=== PATIENT | female | born 2000 | race Caucasian/White ===

== ENCOUNTER → 2022-06-11 15:56 | Outpatient (CLI) | payer OTHER, SELFPAY | PROVIDERS: Visit Provider Obstetrics & Gynecology | DX: Z34.82 Encounter for supervision of other normal pregnancy, second trimester (principal) | CPT/HCPCS: 87086 ==

== ENCOUNTER → 2022-06-11 16:21 | Outpatient (CLI) | payer OTHER, SELFPAY ==
--- NOTE | 2022-06-11 16:25 | DI.US.S_ITS ---
PROCEDURE: US OB >= 14 WEEKS FETUS INDICATIONS: anatomy survey OUTSIDE/PRIOR DATING DATA: Last menstrual period (LMP): 12/31/2021. LMP-based estimated date of delivery (SABRINA): 10/07/2022. First dating scan (date and location): 06/12/2022. Estimated date of delivery (SABRINA) from first dating scan: 10/02/2022. TECHNIQUE: Real-time scanning was performed of the fetus, with image documentation and biometric measurements. Endovaginal scanning: Not performed COMPARISON: None. FINDINGS: General: A single living intrauterine gestation is present. Presentation: Breech. Placenta: Placental position is anterior , without previa. Amniotic fluid index: 19.9 cm, normal range is 5-24 cm. Single deepest vertical pocket is 6.3 cm. heart rate: 131 beats per minute. Maternal cervical canal: 3.8 cm long. Normal lower limit is 2.5 cm. biometrics: Biparietal diameter: 5.7 cm, 23 weeks 2 days Head circumference: 21.5 cm, 23 weeks 4 days Abdominal circumference: 19.7 cm, 24 weeks 3 days Femur length: 4.3 cm, 23 weeks 6 days estimated gestational age: 23 weeks 1 day Composite gestational age from present scan: 23 weeks 6 days Estimated weight and percentile: 658 g, 85th percentile Anatomic survey: Neuro: Ventricles are non-dilated at less than 10 mm. Cisterna magna is normal at 3-11 mm. Cerebellum is normal in size and morphology. Nuchal skin fold: Normal at less than 6 mm between 14-21 weeks gestational age. Face: Nose and lips, facial profile are normal. Spine: No evidence for spina bifida. Heart: 4-chambered heart is present, with normal ventricular outflow tracts. Left ventricular echogenic intracardiac focus Diaphragm: Diaphragm is intact. Stomach: Left-sided stomach is present. Kidneys: No hydronephrosis. Normal is less than 5 mm in 2nd trimester, less than 7 mm in 3rd trimester. Cord: 3-vessel cord has orthotopic insertion. Bladder: Normal in size. Extremities: All 4 extremities identified. IMPRESSION: 1. Single living intrauterine . 2. A left ventricular echogenic intracardiac focus is present. Recommend correlation with maternal age, ethnicity, and aneuploidy risk assessment results such as serum screening or cell free DNA testing to help guide further management. This finding in the context of low risk CFF DNA screening is likely a normal variant and not clinically significant. 3. Otherwise normal 2nd trimester anatomy survey. We strive to produce accurate, complete, and clear reports of imaging services. To assist us in improving patient care, this report was composed using standard report templates and voice recognition software. Therefore, it may contain abnormal punctuation, insertions and/or omissions. Occasional wrong-word or sound-alike substitutions may occur. Though we review the report and make efforts to correct it, we do recommend that the report be read carefully in proper context to recognize any text inaccuracies. Dictated by: Brandt Swartz M.D. on 06/12/2022 at 8:56 Approved by: Brandt Swartz M.D. on 06/12/2022 at 9:10
== END ==
PROVIDERS: Referring Provider Obstetrics & Gynecology; Visit Provider Obstetrics & Gynecology
DX: Z34.82 Encounter for supervision of other normal pregnancy, second trimester (principal); Z3A.23 23 weeks gestation of pregnancy
CPT/HCPCS: 76811; 87086

== ENCOUNTER → 2022-06-13 16:22 | Outpatient (CLI) | payer OTHER, SELFPAY | PROVIDERS: Visit Provider Physician Assistant Medical | DX: Z34.82 Encounter for supervision of other normal pregnancy, second trimester (principal); Z3A.23 23 weeks gestation of pregnancy | CPT/HCPCS: 87086 ==

== ENCOUNTER → 2022-06-13 16:28 | Outpatient (CLI) | payer OTHER, SELFPAY ==
[2022-06-13 17:56] LABS: Vitamin B12 867 pg/mL (239-931)
[2022-06-16 14:25] LABS: HIV 1 & 2 Ab/Ag 4th Gen Combo NEGATIVE (NEGATIVE); Hep C Virus Ab w/Reflex Quant NEGATIVE s/c (NEGATIVE)
== END ==
PROVIDERS: Referring Provider Obstetrics & Gynecology; Visit Provider Obstetrics & Gynecology
DX: Z34.82 Encounter for supervision of other normal pregnancy, second trimester (principal); Z3A.23 23 weeks gestation of pregnancy
CPT/HCPCS: 36415; 82607; 86803; 87086; 87389

== ENCOUNTER → 2022-07-11 08:48 | Outpatient (CLI) | payer OTHER, SELFPAY ==
[2022-07-11 10:25] LABS: Hematocrit 33.1 % (36-46); Hemoglobin 11.6 g/dL (12.0-16.0)
[2022-07-11 10:45] LABS: GTT (PREG) 1 Hour PP 50gm Dose 110 mg/dL (76-139)
== END ==
PROVIDERS: Referring Provider Specialist; Visit Provider Specialist
DX: Z34.82 Encounter for supervision of other normal pregnancy, second trimester (principal); Z3A.26 26 weeks gestation of pregnancy
CPT/HCPCS: 36415; 82950; 85014; 85018

== ENCOUNTER → 2022-09-03 10:26 | Outpatient (CLI) | payer OTHER, SELFPAY ==
[2022-09-04 12:14] LABS: Candida species Positive (Negative); Gardnerella vaginalis Negative (Negative); Trichomoas vaginalis Negative (Negative)
== END ==
PROVIDERS: Visit Provider Obstetrics & Gynecology
DX: N89.8 Other specified noninflammatory disorders of vagina (principal)
CPT/HCPCS: 87480; 87510; 87660

== ENCOUNTER 2022-09-13 11:02 | Emergency (ER) | payer OTHER, SELFPAY ==
[2022-09-13] VITALS (7 sets, daily range): BP systolic 119–132; BP diastolic 66–83; PULSE 102–109; RESP 15–22; TEMP 36.8; O2SAT 97–100; BMI 26.3
--- NOTE | 2022-09-13 11:22 | DI.RAD.S_ITS ---
PROCEDURE: XR CHEST 1V INDICATIONS: chest pain TECHNIQUE: One view of the chest was acquired. COMPARISON: None. FINDINGS: Surgical changes and devices: None. Lungs and pleura: Lungs are clear. No pleural effusions or pneumothorax. Mediastinum: Mediastinal contours appear normal. Heart size is normal. Bones and chest wall: No suspicious bony lesions. Overlying soft tissues appear unremarkable. IMPRESSION: No acute cardiopulmonary abnormality. Dictated by: Evelio Cruz M.D. on 09/13/2022 at 12:32 Approved by: Evelio Cruz M.D. on 09/13/2022 at 12:33
[2022-09-13 11:47] LABS: Add Manual Diff / Slide Review NO; Basophils Absolute Auto 0 /uL (0-100); Basophils Percent Auto 0.3 % (0-2); Eosinophils Absolute Auto 0 /uL (0-450); Eosinophils Percent Auto 0.5 % (2-4); Hemoglobin 11.7 g/dL (12.0-16.0); Lymphocytes Absolute Auto 1600 /uL (1100-4500); Lymphocytes Percent Auto 17.1 % (25-40); Mean Corpuscular HGB Conc 35.5 % (30-36); Mean Corpuscular Hemoglobin 32.4 PG (26-34); Mean Corpuscular Volume 91.2 fL (80-100); Monocytes Absolute Auto 800 /uL (0-900); Monocytes Percent Auto 8.1 % (3-14); Neutrophils Absolute Auto 6900 /uL (1500-7000); Platelet Count 154 X10^3/uL (150-400); Red Blood Cell Count 3.62 X10^6/uL (4.0-5.2); Red Cell Distribution Width 14.2 % (11.6-14.8); White Blood Cell Count 9.4 X10^3/uL (4.5-11.0)
[2022-09-13 11:51] LABS: Prothrombin Time 11.5 SECONDS (10.1-12.7)
[2022-09-13 11:54] LABS: PTT Partial Thromboplastin Tim 23 SECONDS (26-36)
[2022-09-13 11:57] LABS: Alanine Aminotransferase 17 IU/L (<35); Albumin 3.6 g/dL (3.5-5.0); Albumin Globulin Ratio 1.2 (1.0-2.8); Alkaline Phosphatase 122 U/L (38-126); Aspartate Aminotransferase 21 IU/L (14-36); Bilirubin Total 0.8 mg/dL (0.2-1.3); Blood Urea Nitrogen 6 mg/dL (7-17); Calcium 9.1 mg/dL (8.4-10.2); Carbon Dioxide 20 mmol/L (22-32); Chloride 110 mmol/L (98-107); Creatine Kinase 35 U/L (30-135); Estimated Glomerular Filt Rate > 60 mL/min (>60); Globulin 2.9 g/dL (1.7-4.1); Glucose 107 mg/dL (70-100); HEMOLYSIS < 15 (0-50); Lipase 82 U/L (23-300); Magnesium 1.7 mg/dL (1.6-2.3); Potassium 3.2 mmol/L (3.4-5.1); Sodium 137 mmol/L (137-145); Total Protein 6.5 g/dL (6.3-8.2)
[2022-09-13 12:08] LABS: Troponin I < 0.012 ng/mL (0.01-0.034)
--- NOTE | 2022-09-13 12:08 | ED_ITS ---
HPI - Arrhythmia/Palpitations General Chief Complaint: Arrhythmia/Palpitations Stated Complaint: palpitations, feels heart heavy Time Seen by Provider: 09/13/22 12:08 Source: patient Mode of arrival: Family Vehicle History of Present Illness HPI narrative: This is a 22-year-old female at approximately 36 weeks . Patient states she is noted palpitations throughout her 3rd trimester but had increased frequency 2 to 3 times a day for the past week. She states it will be about 30 seconds maximum she just feels couple of extra beats she might feel like she is to catch her breath she feels slightly dizzy. No chest pain, does not describe any shortness of breath. No syncope. No nausea no vomiting no issues with bowel movements or urination, patient states she did have a yeast infection recently but that had improved. She denies any new swelling of her extremities. No fevers chills cold cough or congestion. No abdominal pain. She states 2 weeks ago she would about 2 days where she was having contractions which felt more like actual contractions instead of Elizabeth Puentes. She states she has not had any more since then. She notes that she does have some anemia she is on vitamins including iron, fish oil and takes Prilosec daily for GERD. She states she is had a lithotripsy for kidney stones in the past. No known drug allergies. No tobacco, alcohol or illicit. She gets her care with Dr. Madrigal. Related Data Home Medications Medication Instructions Recorded Confirmed cetirizine 10 mg capsule (Zyrtec) 10 mg PO DAILY PRN 06/09/22 09/03/22 mecobalamin (vitamin B12) 1,000 3,000 mcg PO DAILY 06/09/22 09/03/22 mcg lozenges omega 3-ulj-xep-fish oil 300 1 cap PO DAILY 06/09/22 09/03/22 mg-1,000 mg capsule (Fish Oil) omeprazole 20 mg capsule,delayed 20 mg PO DAILY 06/09/22 09/03/22 release prenat.vits,jerriac,oxp-ijay-nggbn 1 tab PO DAILY 06/09/22 09/03/22 Allergies Allergy/AdvReac Type Severity Reaction Status Date / Time No Known Drug Allergies Allergy Verified 09/13/22 11:12 Review of Systems Review of Systems ROS Unobtainable: All systems reviewed & are unremarkable except as noted in HPI and below Patient History Medical History ADHD (~2009) Anxiety (~2017) Depression (~2017) Dyspareunia Environmental allergies GERD (gastroesophageal reflux disease) OCD (obsessive compulsive disorder) (~2017) Spinal headache Suicidal ideation White coat syndrome with high blood pressure but without hypertension Surgical History Anesthesia H/O lithotripsy (~04/2018) Family History Mother Migraine Brother Environmental allergies Asthma Grandfather Heart disease Heart attack Pacemaker Congenital anomaly of kidney Grandfather Diabetes mellitus Lung disease Grandmother Hypothyroidism OCD (obsessive compulsive disorder) B12 deficiency Neuropathy Family/Other Crohn's disease Family/Other Eclampsia hemorrhage Social History marital status: number of children: 1 household members: spouse and children lives independently: Yes caregiver/support person: Yes housing: apartment pets and animals: Yes (2 cats, manages litter box) education level: college (some college) occupational status: unemployed current occupational exposures/hazards: No yamzin/hindu: [employer] special yazmin needs: No travel history: recent (cross-country domestic move) seatbelt use: always water heater temp set < 120 deg: Yes working smoke detector in home: Yes fire extinguisher in home: Yes carbon monox detector in home: Yes firearms in home: No do you feel safe at home: Yes Smoking Status: Never smoker second hand exposure: No alcohol intake: former (very rarely when not ) substance use type: does not use and marijuana (as a teenager, never as an adult) during the past year weight has: other (pt's other child was only ~1 year old when she got ) daily servings fruits/ve-4 caffeine: Yes (rarely) Type(s) of exercise: none Smoking Status: Never smoker alcohol intake frequency: 0-2 drinks per day Substance Use Type: does not use Exam Narrative Exam Narrative: GENERAL: Alert and oriented x three, well-appearing female in mild distress. HEENT: Head normocephalic, atraumatic, EOMI, pupils reactive, face symmetric, moist mucous membranes NECK: Supple, full range of motion CARDIOVASCULAR: Regular rate and rhythm without murmurs, rubs or gallops. No JVD. No swelling bilateral lower extremities. RESPIRATORY: Breath sounds equal bilaterally, no wheezes rales or rhonchi. No tachypnea or accessory muscle use. Speaks in full sentences. ABDOMEN: Soft, nontender. Gravid, size appropriate for dates. No contractions palpated. Normoactive bowel sounds all 4 quadrants. No guarding or rebound, rigidity, no mass : No CVA tenderness EXTREMITIES: Normal range of motion, no clubbing or edema. Neurovascularly intact NEUROLOGICAL: Cranial nerves II through XII grossly intact. Moving all extremities SKIN: Warm, dry, no petechiae, no rashes or lesions. Initial Vital Signs Initial Vital Signs: Vital Signs Temperature 98.3 F 09/13/22 11:12 Pulse Rate 104 H 09/13/22 11:12 Respiratory Rate 19 09/13/22 11:12 Blood Pressure 132/83 09/13/22 11:12 Pulse Oximetry 100 09/13/22 11:12 Oxygen Delivery Method Room Air 09/13/22 11:12 Course Orders Ordered: Discontinued Medications Sodium Chloride (Normal Saline 0.9%) 1,000 mls @ 1,000 mls/hr IV BOLUS ONE Stop: 09/13/22 13:08 Last Infusion: 09/13/22 13:32 Dose: 0 mls/hr Documented By: Admin: 09/13/22 12:27 Dose: 1,000 mls/hr Documented By: ST Potassium Chloride (Potassium Chloride 20 Meq/15 Ml Udc) 40 meq PO NOW ONE Stop: 09/13/22 12:10 Last Admin: 09/13/22 12:27 Dose: 40 meq Documented By: ST Vital Signs Vital signs: Vital Signs - 8 hr 09/13/22 11:12 Temperature 98.3 F Pulse Rate 104 H Respiratory Rate 19 Blood Pressure 132/83 Pulse Oximetry 100 Oxygen Delivery Method Room Air MDM - Arrhythmia/Palpitations Lab Data 09/13/22 11:30 09/13/22 11:30 Labs: Lab Results 09/13/22 09/13/22 09/13/22 Range/Units 11:30 11:30 11:30 WBC 9.4 (4.5-11.0) X10^3/uL RBC 3.62 L (4.0-5.2) X10^6/uL Hgb 11.7 L (12.0-16.0) g/dL Hct 33.0 L (36-46) % MCV 91.2 (80-100) fL MCH 32.4 (26-34) PG MCHC 35.5 (30-36) % RDW 14.2 (11.6-14.8) % Plt Count 154 (150-400) X10^3/uL Neut % (Auto) 74.0 (50-75) % Lymph % (Auto) 17.1 L (25-40) % [place] % (Auto) 8.1 (3-14) % Eos % (Auto) 0.5 L (2-4) % Baso % (Auto) 0.3 (0-2) % Neut # (Auto) 6900 (4426-7407) /uL Lymph # (Auto) 1600 (2424-6749) /uL [place] # (Auto) 800 (0-900) /uL Eos # (Auto) 0 (0-450) /uL Baso # (Auto) 0 (0-100) /uL PT 11.5 (10.1-12.7) SECONDS INR 1.0 (0.9-1.3) APTT 23 L (26-36) SECONDS Sodium 137 (137-145) mmol/L Potassium 3.2 L (3.4-5.1) mmol/L Chloride 110 H (98-107) mmol/L Carbon Dioxide 20 L (22-32) mmol/L BUN 6 L (7-17) mg/dL Creatinine 0.43 L (0.52-1.04) mg/dL Estimated GFR > 60 (>60) mL/min BUN/Creatinine Ratio 14.0 (6-22) Glucose 107 H (70-100) mg/dL Calcium 9.1 (8.4-10.2) mg/dL Magnesium 1.7 (1.6-2.3) mg/dL Total Bilirubin 0.8 (0.2-1.3) mg/dL AST 21 (14-36) IU/L ALT 17 (<35) IU/L Alkaline Phosphatase 122 (38-126) U/L Total Creatine Kinase 35 (30-135) U/L CK-MB (CK-2) TNP CK-MB (CK-2) Rel Index TNP Troponin I < 0.012 (0.01-0.034) ng/mL Total Protein 6.5 (6.3-8.2) g/dL Albumin 3.6 (3.5-5.0) g/dL Globulin 2.9 (1.7-4.1) g/dL Albumin/Globulin Ratio 1.2 (1.0-2.8) Lipase 82 (23-300) U/L Urine RBC (0-5/HPF) Urine WBC (0-5/HPF) Ur Squamous Epith Cells (0-5/HPF) Urine Bacteria (None) Ur Culture Indicated? 09/13/22 Range/Units 11:54 WBC (4.5-11.0) X10^3/uL RBC (4.0-5.2) X10^6/uL Hgb (12.0-16.0) g/dL Hct (36-46) % MCV (80-100) fL MCH (26-34) PG MCHC (30-36) % RDW (11.6-14.8) % Plt Count (150-400) X10^3/uL Neut % (Auto) (50-75) % Lymph % (Auto) (25-40) % [place] % (Auto) (3-14) % Eos % (Auto) (2-4) % Baso % (Auto) (0-2) % Neut # (Auto) (0574-2525) /uL Lymph # (Auto) (9754-0486) /uL [place] # (Auto) (0-900) /uL Eos # (Auto) (0-450) /uL Baso # (Auto) (0-100) /uL PT (10.1-12.7) SECONDS INR (0.9-1.3) APTT (26-36) SECONDS Sodium (137-145) mmol/L Potassium (3.4-5.1) mmol/L Chloride (98-107) mmol/L Carbon Dioxide (22-32) mmol/L BUN (7-17) mg/dL Creatinine (0.52-1.04) mg/dL Estimated GFR (>60) mL/min BUN/Creatinine Ratio (6-22) Glucose (70-100) mg/dL Calcium (8.4-10.2) mg/dL Magnesium (1.6-2.3) mg/dL Total Bilirubin (0.2-1.3) mg/dL AST (14-36) IU/L ALT (<35) IU/L Alkaline Phosphatase (38-126) U/L Total Creatine Kinase (30-135) U/L CK-MB (CK-2) CK-MB (CK-2) Rel Index Troponin I (0.01-0.034) ng/mL Total Protein (6.3-8.2) g/dL Albumin (3.5-5.0) g/dL Globulin (1.7-4.1) g/dL Albumin/Globulin Ratio (1.0-2.8) Lipase (23-300) U/L Urine RBC 0-1/hpf (0-5/HPF) Urine WBC 5-10/hpf H (0-5/HPF) Ur Squamous Epith Cells 5-10 /hpf H (0-5/HPF) Urine Bacteria Few (2-10) H (None) Ur Culture Indicated? Specimen cultured Urine Dip Bedside Urine Glucose Negative Bedside Urine Bilirubin - Negative Bedside Urine Ketone - Negative Urine Specific Leslie 1.005 Bedside Urine Occult Blood + Bedside Urine pH 7.0 Bedside Urine Protein - Negative Bedside Urine Urobilinogen - Negative Bedside Urine Nitrite - Negative Bedside Urine Leukocytes +/- 15 Esterase Imaging Data Chest x-ray: Radiologist's Impresson: Close Chest X-Ray (Signed) CallCristiann - 09/13/22 Launch?[place] [address] XRay Report Signed Patient: Sue Christian MR#: [id number] : 2000 Acct:[id number] Age/Sex: 22 / F Date of Service: 09/13/22 Loc: ED Accession Number: [id number] ?? Procedure: XR chest 1V Ordering Provider: Tish James D.O. PROCEDURE:? XR CHEST 1V ? INDICATIONS:? chest pain ? TECHNIQUE:? One view of the chest was acquired.? ? COMPARISON:? None. ? FINDINGS:? ? Surgical changes and devices:? None.? ? Lungs and pleura:? Lungs are clear.? No pleural effusions or pneumothorax.? ? Mediastinum:? Mediastinal contours appear normal.? Heart size is normal.? ? Bones and chest wall:? No suspicious bony lesions.? Overlying soft tissues appear unremarkable.? ? IMPRESSION:? No acute cardiopulmonary abnormality. ? ? ? Dictated by: Eveloi Cruz M.D. on 09/13/2022 at 12:32 ? ? Approved by: Evelio Cruz M.D. on 09/13/2022 at 12:33?? ECG Data Attestation: I personally reviewed and interpreted this ECG as follows: Prior ECG tracings: not available for review Interpretation: Sinus rhythm nonspecific. Rate of 93 [place] 144 QRS is [address] No acute [address] elevation or depression appreciated. No prior available. MDM Narrative Medical decision making narrative: This is a 22-year-old female who presents with complaint of palpitations intermittently for the past week 2 or 3 times a week for about 30 seconds. Patient has been slightly tachycardic 90s to 100s, no chest pain, no syncope, no other high-risk symptoms. She is noted to have anemia which she is is aware of. Potassium slightly low at 3.2. CO2 is decreased. Normal renal function electrolytes otherwise. No protein on urine. Patient's troponin is negative with negative LFTs. EKG does not show any acute ST changes or arrhythmias. Blood pressure 1 30s to 120s. Patient does not have any other clear preeclampsia signs. Plan for fluids, replace potassium orally as this maybe a little bit sensitive and having palpitations with this. No arrhythmias have been captured here in the department. Discussed with patient findings today. Discussed potassium may be causing some of her palpitation sensation, no clear cardiac issues or found today. Suspicion for pulmonary emboli as rather no chest pain or shortness of breath just palpitations sensation intermittently 2 or 3 times daily. Patient has not had any new swelling of extremities or other high-risk factors besides . Blood pressure is noted to be slightly elevated throughout her stay, she does note she has white coat syndrome in his typically high and her initial OB visits and then comes down during those. Plan to go to L&D for NST is patient did have contractions in the past 2 weeks she is not having them persistently as well as BP slightly elevated 120-130 range. Discharge Plan Departure Patient Disposition: Home Clinical Impression: Palpitations, Instructions: DI for Palpitations Activity Restrictions/Additional Instructions: Please follow-up at your regular recheck. Your potassium was very slightly low I would recommend bananas or high potassium foods for the next several days and they can recheck your levels if symptoms are persisting. Please return if you are having new or worsening sensation of palpitations, fast or irregular heartbeat, new chest pain, shortness of breath, lightheadedness or passing out, new swelling in your extremities, persistent vomiting, abdominal pain, severe headaches or spots in her vision or other new or concerning changes. Prescriptions: No Action prenat.vits,jerrica,jrt-vjcw-whpfm Tablet 1 tab PO DAILY mecobalamin (vitamin B12) 1,000 mcg lozenge 3,000 mcg PO DAILY Rx Instructions: allow to dissolve in mouth OR may chew lightly before swallowing omega 6-tfk-qaz-fish oil [Fish Oil] 300-1,000 mg capsule 1 cap PO DAILY Zyrtec 10 mg capsule 10 mg PO DAILY PRN omeprazole 20 mg capsule,delayed release(DR/EC) 20 mg PO DAILY Referrals: ProviderMyles [Primary Care Provider] - Stand Alone Forms: Patient Portal/API
[2022-09-13 12:15] LABS: Bacteria Urine Few (2-10); Culture Indicated Urine Specimen Cultured; RBC Urine 0-1/HPF (0-5/HPF); Squamous Epithelial Cell Urine 5-10 /HPF (0-5/HPF); WBC Urine 5-10/HPF (0-5/HPF)
[2022-09-13] MEDS: POTASSIUM CHLORIDE 20 MEQ/15 ML UDC 40 MEQ PO (12:27)
[2022-09-13] MEDS: SODIUM CHLORIDE 0.9% 1,000 ML 1000 ML IV (12:27)
--- NOTE | 2022-09-13 13:29 | PC.NURSE ---
1319: Called Center to provide report and advise that pt is coming after discharge
== END 2022-09-13 13:33 | disposition home or self-care (01) ==
PROVIDERS: Emergency Provider Emergency Medicine
DX: O26.893 Other specified pregnancy related conditions, third trimester (principal); R42 Dizziness and giddiness; R00.2 Palpitations; Z3A.36 36 weeks gestation of pregnancy
CPT/HCPCS: 36415; 59025; 71045; 80053; 81003; 81015; 82550; 83690; 83735; 84484; 85025; 85610; 85730; 87086; 93005; 99284

== ENCOUNTER 2022-09-13 13:44 | Outpatient (CLI) | payer OTHER, SELFPAY | END 2022-09-13 15:05 | disposition home or self-care (01) | LOC: OB 09-15 07:40 | PROVIDERS: Referring Provider Obstetrics & Gynecology; Visit Provider Obstetrics & Gynecology | DX: O26.893 Other specified pregnancy related conditions, third trimester (principal); Z3A.36 36 weeks gestation of pregnancy; R42 Dizziness and giddiness | CPT/HCPCS: 59025; G0378; G0379 ==

== ENCOUNTER → 2022-09-17 11:57 | Outpatient (CLI) | payer OTHER, SELFPAY ==
[2022-09-18 15:55] LABS: Strep Grp B PCR NEG for Grp B Strep
== END ==
PROVIDERS: Visit Provider Obstetrics & Gynecology
DX: Z34.83 Encounter for supervision of other normal pregnancy, third trimester (principal); Z3A.36 36 weeks gestation of pregnancy
CPT/HCPCS: 87653

== ENCOUNTER 2022-10-05 19:46 | Inpatient (IN) | payer OTHER, SELFPAY ==
[2022-10-05] MEDS: LACTATED RINGERS 1,000 ML 999 ML IV (20:53)
[2022-10-05 21:05] LABS: Add Manual Diff / Slide Review NO; Basophils Absolute Auto 0 /uL (0-100); Basophils Percent Auto 0.1 % (0-2); Eosinophils Absolute Auto 0 /uL (0-450); Eosinophils Percent Auto 0.4 % (2-4); Hematocrit 33.5 % (36-46); Hemoglobin 11.8 g/dL (12.0-16.0); Lymphocytes Absolute Auto 2200 /uL (1100-4500); Mean Corpuscular HGB Conc 35.2 % (30-36); Mean Corpuscular Hemoglobin 32.4 PG (26-34); Mean Corpuscular Volume 91.9 fL (80-100); Monocytes Absolute Auto 1000 /uL (0-900); Monocytes Percent Auto 9.3 % (3-14); Neutrophils Absolute Auto 7300 /uL (1500-7000); Neutrophils Percent Auto 69.2 % (50-75); Platelet Count 163 X10^3/uL (150-400); Red Blood Cell Count 3.64 X10^6/uL (4.0-5.2); Red Cell Distribution Width 14.3 % (11.6-14.8); White Blood Cell Count 10.6 X10^3/uL (4.5-11.0)
[2022-10-05] MEDS: miSOPROStoL 25 MCG TABLET VAG (21:28)
[2022-10-05 21:55] VITALS: BP 121/75
[2022-10-06] MEDS: fentaNYL 100 MCG/2 ML INJ 50 MCG IV (01:36)
[2022-10-06] MEDS: LACTATED RINGERS 1,000 ML 999 ML IV (02:05)
[2022-10-06] MEDS: FENT 2MCG/ML BUPIV 0.125% EPI 200 MCG/100 ML PLAST..BAG 10 MCG EPIDURAL ×2 (02:18→08:10)
[2022-10-06] MEDS: diphenhydrAMINE 50 MG/ML VIAL 25 MG IV (05:44)
[2022-10-06] MEDS: LACTATED RINGERS 1,000 ML 100 ML IV (06:56)
--- NOTE | 2022-10-06 07:36 | P.HPOB_ITS ---
OB HPI Date/Time Date of admission: 10/05/22 Date Patient Seen: 10/06/22 Time Patient Seen: 08:45 History of Present Condition Chief complaint: Induction SABRINA Calculator Estimated Delivery Date Method Current WG Current Estimate 10/10/22 Ultrasound #1 39w 3d Other Estimates 09/12/22 LMP (Certain) 43w 3d Estimated Gestational Age (weeks): 39+3 : 2 Para: 1 Narrative: Patient is a 22-year-old 2 para 1 at 39 +3 weeks' gestation. She received Cytotec intra vaginal x1 last night. She had spontaneous rupture of membranes. She received an epidural for pain management. care: good care, initiated at week # (5), number of visits (15) and pounds weight gain (42) Dating criteria OB: LMP confirmed by 1st trimester US Ultrasounds: normal 1st trimester US and normal mid trimester US Obstetrical complications: none Medical complications OB: none Indications Indication for induction OB: maternal discomfort Preadmission Labs Last OB Lab Results: Blood Type B Positive 10/05/22 20:35 Antibody Screen Negative 10/05/22 20:35 Hematocrit 33.5 % (36-46) L 10/05/22 20:35 Hemoglobin 11.8 g/dL (12.0-16.0) L 10/05/22 20:35 Hepatitis C Antibody Negative s/c (NEGATIVE) 06/13/22 16:31 Glucose 1 Hour 110 mg/dL (76-139) 07/11/22 10:15 Group B Streptococcus (PCR) Neg for grp b strep 09/17/22 11:57 -: Chlamydia screen: negative (at [facility]), Gonorrhea screen: negative (at [facility]) and Urine: negative -: PAP smear: Normal External Labs -: Urine: negative Prior (ies) Past Pregnancies Del. Date GA/Weeks Labor Lgth Wt Sex Route Outcome Anesthesia Place Delv Breastfeed Preg Comp Name 02/04/21 41 37 8 lb 4 oz Female vaginal live - full ter m epidural [place], [place] 3 days none Cathy Delivery Date: 02/04/21 Last Updated by: Anitra Means, RN severe spinal headache ~8 days Evaluation Evaluation Baseline heart rate: 135 Variability: Moderate (11-25) monitor accelerations: Present Monitor Decelerations: Absent Contraction Frequency (minutes): 3 Uterine Contraction Intensity: Strong/Firm Status: Category l Dilation (cm): 8 Effacement (%): 100 station: 0 PFSH Medical History ADHD (~2009) Anxiety (~2016) Depression (~2017) Dyspareunia Environmental allergies GERD (gastroesophageal reflux disease) OCD (obsessive compulsive disorder) (~2016) Spinal headache Suicidal ideation White coat syndrome with high blood pressure but without hypertension Surgical History Anesthesia H/O lithotripsy (~04/2018) Family History Mother Migraine Brother Environmental allergies Asthma Grandfather Heart disease Heart attack Pacemaker Congenital anomaly of kidney Grandfather Diabetes mellitus Lung disease Grandmother Hypothyroidism OCD (obsessive compulsive disorder) B12 deficiency Neuropathy Family/Other Crohn's disease Family/Other Eclampsia hemorrhage Social History marital status: number of children: 1 household members: spouse and children lives independently: Yes caregiver/support person: Yes housing: apartment pets and animals: Yes (2 cats, manages litter box) education level: college (some college) occupational status: unemployed current occupational exposures/hazards: No yazmin/hoahaoism: [employer] special yazmin needs: No travel history: recent (cross-country domestic move) seatbelt use: always water heater temp set < 120 deg: Yes working smoke detector in home: Yes fire extinguisher in home: Yes carbon monox detector in home: Yes firearms in home: No do you feel safe at home: Yes Smoking Status: Never smoker second hand exposure: No alcohol intake: former (very rarely when not ) substance use type: does not use and marijuana (as a teenager, never as an adult) during the past year weight has: other (pt's other child was only ~1 year old when she got ) daily servings fruits/ve-4 caffeine: Yes (rarely) Type(s) of exercise: none Meds Home Medications and Allergies Home Medications Medication Instructions Recorded Confirmed Type mecobalamin (vitamin B12) 1,000 3,000 mcg PO DAILY 06/09/22 10/05/22 History mcg lozenges omega 0-xzl-yyd-fish oil 300 1 cap PO DAILY 06/09/22 10/05/22 History mg-1,000 mg capsule (Fish Oil) omeprazole 20 mg capsule,delayed 20 mg PO DAILY 06/09/22 10/05/22 History release propranolol 20 mg tablet 20 mg PO ONCE PRN panic #14 tabs 09/17/22 10/05/22 Rx Women's Probiotic 1 cap PO DAILY 10/05/22 10/05/22 History ferrous sulfate 45 mg PO DAILY 10/05/22 10/05/22 History loratadine 10 mg tablet 10 mg PO DAILY 10/05/22 10/05/22 History vitamin with calcium 1 tab PO DAILY 10/05/22 10/05/22 History no.72-iron 27 mg-folic acid 1 mg tablet (M-Rey Plus) Allergies Allergy/AdvReac Type Severity Reaction Status Date / Time No Known Drug Allergies Allergy Verified 10/05/22 21:46 OB Exam Narrative Exam Narrative: Generally: Patient comfortable with epidural Lungs: Clear to auscultation bilaterally Cardiovascular: Regular rate and rhythm Fundal height: 41 cm Estimated weight: 9 lbs Extremities: Trace edema Objective Labs 10/05/22 20:35 Labs: Laboratory Results - last 24 hr 10/05/22 10/05/22 20:35 20:35 WBC 10.6 RBC 3.64 L Hgb 11.8 L Hct 33.5 L MCV 91.9 MCH 32.4 MCHC 35.2 RDW 14.3 Plt Count 163 Neut % (Auto) 69.2 Lymph % (Auto) 21.0 L [place] % (Auto) 9.3 Eos % (Auto) 0.4 L Baso % (Auto) 0.1 Neut # (Auto) 7300 H Lymph # (Auto) 2200 [place] # (Auto) 1000 H Eos # (Auto) 0 Baso # (Auto) 0 Blood Type B Positive Antibody Screen Negative Assessment and Plan Assessment and Plan Assessment and Plan narrative: Assessment: 22-year-old 2 para 1 at 39-,3/7 weeks gestation in active labor after Cytotec x1 Comfortable with epidural Plan: Expectant management to spontaneous vaginal delivery Time Spent with Patient Total time spent with greater than 50% in coordination of care (as documented) at patient's floor/unit and/or counseling patient:: 15-24 minutes
[2022-10-06] MEDS: OXYTOCIN PREMIX 30 UNIT/500 ML PLAST..BAG IV (07:50)
--- NOTE | 2022-10-06 08:32 | PM.ANES.PR ---
Operative Date/Time/Diagnoses Date of procedure: 10/06/22 Time of procedure: 02:07 Pre-op diagnosis: labor pain Post-op diagnosis: same Note Healthy requesting labor epidural
--- NOTE | 2022-10-06 08:36 | PM.AN.REGBLK ---
Regional Block Pre-procedure PMH/ROS narrative: Healthy requesting labor epidural PSH/Anesthesia history narrative: Hx of severe spinal headache a/w previous labor epidural. Patient states she had a severe headache for 8 days, she did not receive a blood patch. Exam narrative: Mallampati 2, TM > 3 cm, full range of motion in neck ASA Class: II Labs: Hct 33.5 % (36-46) L 10/05/22 20:35 Plt Count 163 X10^3/uL (150-400) 10/05/22 20:35 Medications: Current Medications Generic Name Dose Route Start Last Admin Trade Name Freq PRN Reason Stop Dose Admin Calcium Carbonate 1,000 mg 10/05/22 19:54 Calcium Carbonate 500 Mg Tab PO Q4HR PRN Dyspepsia Carboprost Tromethamine 250 mcg 10/05/22 19:54 Carboprost 250 Mcg/Ml Ampul IM Q90M PRN Bleeding Diphenhydramine HCl 25 mg 10/06/22 01:52 10/06/22 05:44 Diphenhydramine 50 Mg/Ml Vial IV 25 mg Q10M PRN Administration Pruritis Fentanyl 50 mcg 10/05/22 19:54 10/06/22 01:36 Fentanyl 100 Mcg/2 Ml Inj IV 50 mcg Q1H PRN Administration Pain, Moderate (4-6) Oxytocin/Lactated Ringer's 30 unit in 500 mls @ 2 mls/hr 10/05/22 20:00 10/06/22 07:50 Oxytocin Premix IV 2 milliunit/min TITRATE SAVI 2 mls/hr Administration Protocol 2 MILLIUNIT/MIN Lactated Ringer's 1,000 mls @ 100 mls/hr 10/05/22 20:00 10/06/22 06:56 Lactated Ringers IV 100 mls/hr CONT SAVI Administration Oxytocin/Lactated Ringer's 30 unit in 500 mls @ 200 mls/hr 10/05/22 19:54 Oxytocin Premix IV CONT PRN Bleeding Protocol Tranexamic Acid 1,000 mg/ 100 mls @ 200 mls/hr 10/05/22 19:54 Sodium Chloride IV NOW PRN Bleeding FENT 2MCG/ML BUPIV 0.125% EPI 200 mcg in 100 mls @ 6 mls/hr 10/06/22 02:00 10/06/22 08:10 Fentanyl/Bupiv/Ns 2mcg/Ml - 0.125% EPIDURAL 10 mls/hr CONT SAVI Administration Lidocaine HCl 20 ml 10/05/22 19:54 Lidocaine 1% 20 Ml INJ INTRA-OP PRN Post Delivery Methylergonovine Maleate 0.2 mg 10/05/22 19:54 Methylergonovine 0.2 Mg/Ml Vial IM NOW PRN Bleeding Methylergonovine Maleate 0.2 mg 10/05/22 19:54 Methylergonovine 0.2 Mg Tablet PO Q6HR PRN Heavy Bleeding Misoprostol 25 mcg 10/05/22 20:00 10/06/22 05:15 Misoprostol 25 Mcg Tablet VAG Not Given Q4H SAVI Misoprostol 400 mcg 10/05/22 19:54 Misoprostol 200 Mcg Tablet SL NOW PRN Bleeding Misoprostol 800 mcg 10/05/22 19:54 Misoprostol 200 Mcg Tablet WI NOW PRN Bleeding Nalbuphine HCl 2.5 mg 10/06/22 01:52 Nalbuphine 20 Mg/Ml Ampul IV Q10M PRN Pruritis Naloxone HCl 0.2 mg 10/05/22 19:54 Naloxone 0.4 Mg/Ml Vial IV Q2MIN PRN Opiate Reversal Ondansetron HCl 4 mg 10/05/22 19:54 Ondansetron 4 Mg/2 Ml Inj IV Q4HR PRN Nausea And Vomiting Oxytocin 10 unit 10/05/22 19:54 Oxytocin 10 Unit/Ml Vial IM NOW PRN Bleeding Allergies: Allergies Allergy/AdvReac Type Severity Reaction Status Date / Time No Known Drug Allergies Allergy Verified 10/05/22 21:46 Procedure Insertion date: 10/06/22 Insertion time: 02:07 Prep/Local: betadine x3 (Chlorhexadine prep) and 1% lidocaine (3 cc ) Interspace: L3-4 Patient position: sitting Needle: 18 gauge Hustead Loss of resistance with: saline ARPITA at (cm): 4 Catheter placed at SKIN (cm): 9 Catheter in SPACE (cm): 5 Sensory level: T10 Insertion: No Paresthesia with injection and No Test dose reaction Initial Medications TEST DOSE time: 02:17 TEST DOSE: 1.5% lidocaine with epinephrine 1:200k (mL): 5 BOLUS DOSE time: 02:20 BOLUS DOSE (mL): 5 BOLUS DOSE med: other (2% Lidocaine) Infusion INFUSION: 0.125% bupivacaine and with fentanyl 2 mcg/mL Initial rate (mL/hr): 10 Subsequent interventions: 0745: Patient states she has some discomfort around area of urinary catheter. Denies abdominal pain with contractions. Infusion rate increased from 10-> 13 Post-procedure Anesthesia time START: 02:07 Anesthesia time END: 09:33 Post-procedure Anesthesia Assessment: Yes CV function: HR/BP stable, Yes Resp function: RR/sat/airway adequate, Yes Post-op hydration adequate, Yes Pain control adequate, Yes Nausea & vomiting absent, Yes Temperature > 36 C, Yes Mental status appropriate and Yes Anesthesia complications
--- NOTE | 2022-10-06 09:54 | P.PCNOB_ITS ---
Events: Labor Induction Labor & Delivery Delivery date: 10/06/22 Intrapartal Events: None Cervical ripening method: per misoprostal protocol Induction method: none Delivery augmentation: pitocin Delivery monitor: external FHT and external uterine Route of delivery: Episiotomy description: None L&D Laceration Description: None Quantitative Blood Loss: 100 Anesthesia Type: Epidural Complications: None Narrative: Patient complete and pushed for 50 minutes. At 9:33 a.m., a live male infant delivered spontaneously over an intact perineum. A tight nuchal cord x1 was cut on the perineum. The remainder of the body delivered without difficulty and was placed on mom's abdomen. The was taken to the warmer due to poor tone and little respiratory effort. Pitocin was given in the IV fluids. The placenta delivered intact with a three-vessel cord at 9:38 a.m.. The fundus was massaged to firm. No lacerations noted. QBL: 100 cc. weight 9 lb 7.9 oz. Apgars 4 at 1 minute, 7 at 5 minutes, and 9 at 10 minutes. . Epidural analgesia. Mom and infant stable to recovery. [place] Baby 1: Presentation: vertex Position: Left Occiput Anterior Placenta delivery description: Spontaneous Cord Vessel Description: 3 Vessels, Nuchal Cord (X1), Tight (Cut on the perineum) and Clamped/Cut score (1 min): 4 score (5 min): 7 score (10 min): 9 weight: 9 lb 7.9 oz Plan for aftercare: Routine care
[2022-10-06] MEDS: ACETAMINOPHEN 325 MG TABLET 650 MG PO ×3 (10:48→22:33)
[2022-10-06] MEDS: IBUPROFEN 600 MG TABLET PO ×3 (10:48→22:32)
[2022-10-07 06:29] LABS: Hematocrit 30.5 % (36-46)
[2022-10-07] MEDS: IBUPROFEN 600 MG TABLET PO (06:55)
[2022-10-07] MEDS: ACETAMINOPHEN 325 MG TABLET 650 MG PO (06:55)
--- NOTE | 2022-10-07 08:04 | P.DS_ITS ---
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 She received 1 dose. She had a spontaneous rupture of membranes after the first dose. She received an epidural for pain management. She was started on very low-dose Pitocin and got up to 2 jewels IU per minute. She progressed to complete dilation and had a spontaneous vaginal delivery without complication. No lacerations. Her course was unremarkable. She is discharged home on day #1. Peripartum Data Delivery Method: Natural Vaginal Laceration Description: None Episiotomy description: None Procedures: Cytotec cervical ripening Epidural analgesia Spontaneous vaginal delivery complications: none [place] 1: Gender: Male Disposition of : home Status at Discharge Cognitive/behavioral status at discharge: oriented Functional status at discharge: independent ambulation Overall status at discharge: patient is progressing back to baseline Time Spent with Patient Time attestation: Total time spent providing and/or coordinating discharge services: Time spent: Less than 30 minutes Objective Labs 10/07/22 06:10 Labs: Laboratory Results - last 24 hr 10/07/22 06:10 Hgb 11.0 L Hct 30.5 L Exam Narrative Exam Narrative: Generally: Patient is sitting up in bed, holding , no acute distress Fundus: Firm at U -1 Extremities: No edema, negative Homans Discharge Plan Discharge Plan Patient Disposition: Home Provider Discharge Comment: Call with fever, chills, or bleeding vaginally more than a pad in an hour Ibuprofen 600 mg every 6 hours as needed for cramping Continue vitamins Push oral fluids Discharge orders & Medications Prescriptions: Continued propranolol 20 mg tablet 20 mg PO ONCE PRN (Reason: panic) Qty: 14 0RF Patient Comments: Has not taken yet Rx Instructions: up to 2 doses in 24h mecobalamin (vitamin B12) 1,000 mcg lozenge 3,000 mcg PO DAILY Rx Instructions: allow to dissolve in mouth OR may chew lightly before swallowing omega 0-lcd-swb-fish oil [Fish Oil] 300-1,000 mg capsule 1 cap PO DAILY M-Rey Plus 27 mg iron- 1 mg tablet 1 tab PO DAILY loratadine 10 mg tablet 10 mg PO DAILY ferrous sulfate tablet 45 mg PO DAILY Rx Instructions: Take 1/2 tablet per day for anemia Women's Probiotic capsule 1 cap PO DAILY Discontinued omeprazole 20 mg capsule,delayed release(DR/EC) 20 mg PO DAILY Follow up/Referrals: Angeline Madrigal MD [Physician] - 6 Weeks Diet/Activity/Treatments Diet: Regular Activity: Nothing in the vagina for 6 weeks Skin/Wound/Dressing Care Report to your healthcare provider any signs of infection, such as:: chills, fever, increased pain and unusual drainage Visit Report/Discharge Packet Instructions: DI for Labor and Delivery, Vaginal Stand Alone Forms: Patient Portal/API, Stroke Signs & Symptoms Discharge Data Primary Care Provider: ProviderMyles
[2022-10-07 08:14] VITALS: BP 113/72; PULSE 71; RESP 17; TEMP 36.6
[2022-10-07] MEDS: LORATADINE 10 MG TABLET PO (08:24)
[2022-10-07] MEDS: DOCUSATE 100 MG CAPSULE PO (08:24)
[2022-10-07] MEDS: PRENATAL VIT,CALC/IRON/FOLIC 1 TABLET 1 TAB PO (08:24)
== END 2022-10-07 14:40 | disposition home or self-care (01) | DRG 807 ==
PROVIDERS: Admitting Provider Obstetrics & Gynecology; Referring Provider Obstetrics & Gynecology; Visit Provider Obstetrics & Gynecology
DX: O80 Encounter for full-term uncomplicated delivery (principal); Z37.0 Single live birth; Z3A.39 39 weeks gestation of pregnancy; Z67.20 Type B blood, Rh positive
CPT/HCPCS: 36415; 59050; 59200; 59410; 85014; 85018; 85025; 86850; 86900; 86901; G0379; J1200; J2590; J3010

== ENCOUNTER 2022-12-30 23:51 | Emergency (ER) | payer OTHER, SELFPAY ==
[2022-12-30 23:58] VITALS: BP 140/81; PULSE 103; RESP 18; TEMP 36.8; O2SAT 100; BMI 23.5
--- NOTE | 2022-12-30 23:58 | ED.GENADULT ---
HPI - General Adult General Chief complaint: Abdominal Pain Stated complaint: ABD PAIN Time Seen by Provider: 12/30/22 23:57 History of Present Illness HPI narrative: 22-year-old female nonsmoker delivered by normal, uncomplicated vaginal delivery about 12 weeks ago in presents tonight with gradually worsening lower abdominal and pelvic pain. She had her 1st menstrual cycle about 1 month ago and states that she recently started her menses on this cycle. She is currently bleeding but not any more than normal. She states that earlier today she had some right flank pain that reminds her of prior kidney stones. She states that at times the discomfort is worsened by ambulation and improved by rest. At other times she states the flank pain seems to come and go with a mind of its own. She has nausea but no vomiting and states she has a decreased appetite. She denies dizziness, weakness or lightheadedness. She is had no fever or chills Related Data Home Medications Medication Instructions Recorded Confirmed mecobalamin (vitamin B12) 1,000 3,000 mcg PO DAILY 06/09/22 11/17/22 mcg lozenges omega 3-krq-syi-fish oil 300 1 cap PO DAILY 06/09/22 11/17/22 mg-1,000 mg capsule (Fish Oil) Women's Probiotic 1 cap PO DAILY 10/05/22 11/17/22 ferrous sulfate 45 mg PO DAILY 10/05/22 11/17/22 loratadine 10 mg tablet 10 mg PO DAILY 10/05/22 11/17/22 vitamin with calcium 1 tab PO DAILY 10/05/22 11/17/22 no.72-iron 27 mg-folic acid 1 mg tablet (M-Rey Plus) Previous Rx's Medication Instructions Recorded propranolol 20 mg tablet 20 mg PO ONCE PRN panic #14 tabs 09/17/22 ketorolac 10 mg tablet 10 mg PO Q6H PRN pain #14 tabs 12/31/22 Allergies Allergy/AdvReac Type Severity Reaction Status Date / Time No Known Drug Allergies Allergy Verified 11/17/22 14:56 Review of Systems Review of Systems Narrative: GENERAL: Denies chills, fatigue, malaise, fever, sweats. HEENT: Denies sinus pain, ear pain, sore throat, difficulty swallowing, dizziness. RESPIRATORY: Denies dyspnea, cough, wheezing, hemoptysis, sputum. CARDIOVASCULAR: Denies chest pain, palpitations, orthopnea, edema, GASTROINTESTINAL: See HPI : See HPI MUSCULOSKELETAL: denies weakness, joint pain, or bony pain SKIN: Denies rash, skin lesions, or other NEUROLOGIC: Denies weakness, headache, numbness, change in speech, confusion, seizures, incoordination. PSYCHIATRIC: No concerning psychosocial issues. 12 point review of systems is negative except for those stated above Patient History Medical History ADHD (~2009) Anxiety (~2017) Depression (~2017) Dyspareunia Environmental allergies GERD (gastroesophageal reflux disease) OCD (obsessive compulsive disorder) (~2017) Spinal headache Suicidal ideation White coat syndrome with high blood pressure but without hypertension Surgical History Anesthesia H/O lithotripsy (~04/2018) Family History Mother Migraine Brother Environmental allergies Asthma Grandfather Heart disease Heart attack Pacemaker Congenital anomaly of kidney Grandfather Diabetes mellitus Lung disease Grandmother Hypothyroidism OCD (obsessive compulsive disorder) B12 deficiency Neuropathy Family/Other Crohn's disease Family/Other Eclampsia hemorrhage Social History marital status: number of children: 1 household members: spouse and children lives independently: Yes caregiver/support person: Yes housing: apartment pets and animals: Yes (2 cats, manages litter box) education level: college (some college) occupational status: unemployed current occupational exposures/hazards: No yazmin/lutheran: Moravian special yazmin needs: No travel history: recent (cross-country domestic move) seatbelt use: always water heater temp set < 120 deg: Yes working smoke detector in home: Yes fire extinguisher in home: Yes carbon monox detector in home: Yes firearms in home: No do you feel safe at home: Yes Smoking Status: Never smoker second hand exposure: No alcohol intake: former (very rarely when not ) substance use type: does not use and marijuana (as a teenager, never as an adult) during the past year weight has: other (pt's other child was only ~1 year old when she got ) daily servings fruits/ve-4 caffeine: Yes (rarely) Type(s) of exercise: none Smoking Status: Never smoker alcohol intake frequency: 0-2 drinks per day Substance Use Type: does not use Exam Narrative Exam Narrative: GENERAL: [22] year old patient appears stated age. Well-developed patient, in mild distress. HEAD: Atraumatic. Normocephalic. EYES: Pupils equal round and reactive. Extraocular motions intact. No scleral icterus. No injection or drainage. ENT: Nose without bleeding, purulent drainage. Throat without erythema, tonsillar hypertrophy or exudate. Airway patent. NECK: Trachea midline. Non tender CARDIOVASCULAR: Regular rate and rhythm without murmurs, gallops, or rubs. RESPIRATORY: Clear to auscultation. Breath sounds equal bilaterally. No wheezes, rales, or rhonchi. GASTROINTESTINAL: Abdomen soft, non-tender, nondistended. EXTREMITIES: No edema or joint tenderness. BACK: Nontender without deformity or crepitance. No flank tenderness. NEURO: AOx3. SKIN: No rash or erythema of visible areas Initial Vital Signs Initial Vital Signs: Vital Signs Temperature 98.2 F 12/30/22 23:58 Pulse Rate 103 H 12/30/22 23:58 Respiratory Rate 18 12/30/22 23:58 Blood Pressure 140/81 12/30/22 23:58 Pulse Oximetry 100 12/30/22 23:58 Oxygen Delivery Method Room Air 12/30/22 23:58 Course Orders Ordered: ED Orders 12/30/22 23:58 Complete Blood Count AUTO DIFF Stat Comprehensive Metabolic Panel Stat 12/31/22 00:32 CT abdomen pelvis w con Stat Discontinued Medications Sodium Chloride (Normal Saline 0.9%) 1,000 mls @ 1,000 mls/hr IV BOLUS ONE Stop: 12/31/22 00:57 Last Admin: 12/31/22 00:14 Dose: 1,000 mls/hr Documented By: FAYE Ketorolac Tromethamine (Ketorolac 30 Mg/Ml Vial) 15 mg IV NOW ONE Stop: 12/31/22 01:35 Vital Signs Vital signs: Vital Signs - 8 hr 12/30/22 23:58 Temperature 98.2 F Pulse Rate 103 H Respiratory Rate 18 Blood Pressure 140/81 Pulse Oximetry 100 Oxygen Delivery Method Room Air Medical Decision Making Lab Data 12/31/22 00:07 12/31/22 00:07 Labs: Lab Results 12/31/22 12/31/22 Range/Units 00:07 00:07 WBC 11.4 H (4.5-11.0) X10^3/uL RBC 4.20 (4.0-5.2) X10^6/uL Hgb 13.2 (12.0-16.0) g/dL Hct 37.2 (36-46) % MCV 88.5 (80-100) fL MCH 31.4 (26-34) PG MCHC 35.5 (30-36) % RDW 13.9 (11.6-14.8) % Plt Count 217 (150-400) X10^3/uL Neut % (Auto) 73.7 (50-75) % Lymph % (Auto) 16.1 L (25-40) % [place] % (Auto) 8.9 (3-14) % Eos % (Auto) 1.0 L (2-4) % Baso % (Auto) 0.3 (0-2) % Neut # (Auto) 8400 H (2769-1008) /uL Lymph # (Auto) 1800 (3840-5650) /uL [place] # (Auto) 1000 H (0-900) /uL Eos # (Auto) 100 (0-450) /uL Baso # (Auto) 0 (0-100) /uL Sodium 140 (137-145) mmol/L Potassium 3.6 (3.4-5.1) mmol/L Chloride 106 (98-107) mmol/L Carbon Dioxide 24 (22-32) mmol/L BUN 14 (7-17) mg/dL Creatinine 0.70 (0.52-1.04) mg/dL Estimated GFR > 60 (>60) mL/min BUN/Creatinine Ratio 20.0 (6-22) Glucose 88 (70-100) mg/dL Calcium 10.0 (8.4-10.2) mg/dL Total Bilirubin 1.9 H (0.2-1.3) mg/dL AST 24 (14-36) IU/L ALT 29 (<35) IU/L Alkaline Phosphatase 80 (38-126) U/L Total Protein 7.7 (6.3-8.2) g/dL Albumin 4.5 (3.5-5.0) g/dL Globulin 3.2 (1.7-4.1) g/dL Albumin/Globulin Ratio 1.4 (1.0-2.8) Point of Care Testing Test Results Negative Urine Dip Bedside Urine Glucose Negative Bedside Urine Bilirubin - Negative Bedside Urine Ketone - Negative Urine Specific [place] 1.010 Bedside Urine Occult Blood ++ Bedside Urine pH 6.0 Bedside Urine Protein - Negative Bedside Urine Urobilinogen - Negative Bedside Urine Nitrite - Negative Bedside Urine Leukocytes - Negative Esterase Point of care testing: Point of Care Testing Test Results Negative Urine Dip Bedside Urine Glucose Negative Bedside Urine Bilirubin - Negative Bedside Urine Ketone - Negative Urine Specific [place] 1.010 Bedside Urine Occult Blood ++ Bedside Urine pH 6.0 Bedside Urine Protein - Negative Bedside Urine Urobilinogen - Negative Bedside Urine Nitrite - Negative Bedside Urine Leukocytes - Negative Esterase MDM Narrative Medical decision making narrative: [22] year old patient presents with pelvic pain Multiple etiologies for patient's symptoms considered including, but not limited to: kidney stone vs. appendicitis vs. other[] Prior Charts reviewed in our EMR Primary Historian: patient Labs reviewed and interpreted by myself: slight leukocytosis, no anemia, no signs of UTI Imaging reviewed: CT Abd/Pelvis demonstrates normal appendix, no bowel obstruction, prominent appearing adnexal structures, possibly related to pelvic congestion Patient's history and physical exam are reassuring, no signs of sepsis, pain well controlled, labs largely within normal, imaging shows no appendicitis, kidney stone, bowel obstruction suggests possible pelvic congestion syndrome. Patient treated with fluids and Toradol, improve symptoms, return precautions discussed, encouraged to follow closely with Dr. Madrigal. Findings and discharge diagnosis discussed with patient/family followed by verbalization of understanding Return precautions discussed with patient/family whom verbalize understanding of diagnosis and plan Discharge Plan Departure Patient Disposition: Home Clinical Impression: Pelvic pain, Female pelvic congestion syndrome Instructions: DI for Pelvic Pain Activity Restrictions/Additional Instructions: *You have been diagnosed with [pelvic pain. As we discussed your history and physical exam are reassuring. There is no evidence of appendicitis, kidney stone or urine infection. The CT does make mention of the possibility of pelvic congestion syndrome which we discussed.] *What to do: *Please continue to take your regular medications as directed. [x ] New medication prescriptions sent to your pharmacy: [DOD ] [ ] New medication written as a paper prescription [ ] No new medications given *Please follow up with Dr. Madrigal in a few days, call for an appointment. Let them know you were seen in the Emergency Department and that we ask that you be seen in follow up. We will electronically transmit a record of today's note if your PCP is in our system *Return to Emergency Department if you should have any new, worsening or concerning symptoms, such as [fever greater than 101 F, shaking chills, worsening pain, persistent vomiting or other bothersome symptoms] Prescriptions: New ketorolac 10 mg tablet 10 mg PO Q6H PRN (Reason: pain) Qty: 14 0RF No Action propranolol 20 mg tablet 20 mg PO ONCE PRN (Reason: panic) Qty: 14 0RF Patient Comments: Has not taken yet Rx Instructions: up to 2 doses in 24h mecobalamin (vitamin B12) 1,000 mcg lozenge 3,000 mcg PO DAILY Rx Instructions: allow to dissolve in mouth OR may chew lightly before swallowing omega 7-cpr-yno-fish oil [Fish Oil] 300-1,000 mg capsule 1 cap PO DAILY M-Rey Plus 27 mg iron- 1 mg tablet 1 tab PO DAILY loratadine 10 mg tablet 10 mg PO DAILY ferrous sulfate tablet 45 mg PO DAILY Rx Instructions: Take 1/2 tablet per day for anemia Women's Probiotic capsule 1 cap PO DAILY Referrals: ProviderMyles [Primary Care Provider] - Stand Alone Forms: Patient Portal/API
[2022-12-31] MEDS: SODIUM CHLORIDE 0.9% 1,000 ML 1000 ML IV (00:14)
[2022-12-31 00:20] LABS: Add Manual Diff / Slide Review NO; Basophils Absolute Auto 0 /uL (0-100); Basophils Percent Auto 0.3 % (0-2); Eosinophils Absolute Auto 100 /uL (0-450); Hematocrit 37.2 % (36-46); Hemoglobin 13.2 g/dL (12.0-16.0); Lymphocytes Absolute Auto 1800 /uL (1100-4500); Lymphocytes Percent Auto 16.1 % (25-40); Mean Corpuscular HGB Conc 35.5 % (30-36); Mean Corpuscular Hemoglobin 31.4 PG (26-34); Mean Corpuscular Volume 88.5 fL (80-100); Monocytes Absolute Auto 1000 /uL (0-900); Monocytes Percent Auto 8.9 % (3-14); Neutrophils Absolute Auto 8400 /uL (1500-7000); Neutrophils Percent Auto 73.7 % (50-75); Platelet Count 217 X10^3/uL (150-400); Red Cell Distribution Width 13.9 % (11.6-14.8); White Blood Cell Count 11.4 X10^3/uL (4.5-11.0)
[2022-12-31 00:28] LABS: Alanine Aminotransferase 29 IU/L (<35); Albumin 4.5 g/dL (3.5-5.0); Albumin Globulin Ratio 1.4 (1.0-2.8); Alkaline Phosphatase 80 U/L (38-126); Aspartate Aminotransferase 24 IU/L (14-36); Bilirubin Total 1.9 mg/dL (0.2-1.3); Blood Urea Nitrogen 14 mg/dL (7-17); Carbon Dioxide 24 mmol/L (22-32); Chloride 106 mmol/L (98-107); Estimated Glomerular Filt Rate > 60 mL/min (>60); Globulin 3.2 g/dL (1.7-4.1); Glucose 88 mg/dL (70-100); HEMOLYSIS < 15 (0-50); Potassium 3.6 mmol/L (3.4-5.1); Sodium 140 mmol/L (137-145); Total Protein 7.7 g/dL (6.3-8.2)
--- NOTE | 2022-12-31 00:32 | DI.CT.S_ITS ---
PROCEDURE: CT ABDOMEN PELVIS W CON INDICATIONS: RLQ pain, TECHNIQUE: After the administration of intravenous contrast, axial sections acquired from the lung bases to the pubic symphysis. Coronal and sagittal reformats were performed. For radiation dose reduction, the following was used: automated exposure control, adjustment of mA and/or kV according to patient size. COMPARISON: None. FINDINGS: Image quality: Good Lower chest: No hiatal hernia. Lung bases are unremarkable. Solid organs: The liver appears unremarkable. Gallbladder is unremarkable. No pathologic dilation of the biliary system or pancreatic duct. No splenomegaly. No adrenal nodules. Mild bilateral pelviectasis. No obstructing ureter stone is identified. Multiple nonobstructing calculi are present bilaterally, the largest in the right lower pole measuring up to 7 x 7 by 7 mm. Hounsfield units of over 400. Vessels and lymph nodes: No pathologic lymphadenopathy by size criteria. Main portal vein is patent. No abdominal aortic aneurysm. Bowel and peritoneum: No evidence of small bowel obstruction. No pathologic ascites or drainable abscess. There are colonic diverticula. The appendix is seen and is nondilated. Body wall: Unremarkable Pelvis: Prominent appearing reproductive organs, with prominent pelvic vessels. Retroverted and retroflexed uterus. Bladder is unremarkable. Bones: No acute or suspicious osseous finding. IMPRESSION: Nondilated appendix. No bowel obstruction. Prominent appearing adnexal structures, not well evaluated on CT, possibly physiologic, consider sonographic correlation. Prominent pelvic vessels could be seen with pelvic congestion. Mild bilateral pelvocaliectasis with calyceal calculi, the largest measuring up to 7 mm in the right lower pole. No obstructing calcified stone identified in the ureters. Consider urinalysis correlation as well. Dictated by: Chico Rashid M.D. on 12/31/2022 at 0:58 Approved by: Chico Rashid M.D. on 12/31/2022 at 1:05
[2022-12-31] MEDS: KETOROLAC 30 MG/ML VIAL 15 MG IV (01:42)
[2022-12-31 01:46] VITALS: BP 119/78; PULSE 95; RESP 18; O2SAT 97
== END 2022-12-31 01:48 | disposition home or self-care (01) ==
PROVIDERS: Emergency Provider Emergency Medicine
DX: R10.2 Pelvic and perineal pain (principal); N94.89 Other specified conditions associated with female genital organs and menstrual cycle; Z79.899 Other long term (current) drug therapy
CPT/HCPCS: 36415; 74177; 80053; 81003; 81025; 85025; 96361; 96374; 99284; J1885; Q9967

== ENCOUNTER → 2023-01-07 14:13 | Outpatient (CLI) | payer OTHER, SELFPAY ==
--- NOTE | 2023-01-07 14:14 | DI.US.S_ITS ---
PROCEDURE: US PELVIC COMPLETE INDICATIONS: PELVIC CONGESTION SYNDROME TECHNIQUE: Real-time scanning was performed of the pelvic organs, with image documentation. Additional endovaginal scanning was necessary due to incomplete visualization of the adnexal and endometrial structures by transabdominal scanning. COMPARISON: [facility], CT, CT ABDOMEN PELVIS W CON, 12/31/2022, 0:40. FINDINGS: Uterus: Uterus measures 6.9 x 3.9 x 6.3 cm. Retroverted positioning. Prominent pelvic vasculature. Endometrium measures 7 mm. Ovaries: Nonenlarged ovaries bilaterally. Color and spectral flows are present Other: No pathologic free fluid. IMPRESSION: No acute sonographic abnormality. Prominent pelvic vasculature, sometimes seen in the setting of pelvic congestion syndrome. Dictated by: Chico Rashid M.D. on 01/07/2023 at 17:20 Approved by: Chico Rashid M.D. on 01/07/2023 at 17:22
== END ==
PROVIDERS: Referring Provider Obstetrics & Gynecology; Visit Provider Obstetrics & Gynecology
DX: N92.6 Irregular menstruation, unspecified (principal)
CPT/HCPCS: 76830; 76856; 93976

== ENCOUNTER 2023-01-13 08:13 | Emergency (ER) | payer OTHER, SELFPAY ==
[2023-01-13] VITALS (9 sets, daily range): BP systolic 99–126; BP diastolic 52–84; PULSE 77–89; RESP 18; TEMP 37.1; O2SAT 98–100; BMI 23.5
--- NOTE | 2023-01-13 08:44 | ED_ITS ---
HPI - Abdominal Pain General Chief Complaint: Urogenital-Female Stated Complaint: kidney stone Time Seen by Provider: 01/13/23 08:35 Source: patient Mode of arrival: Ambulatory History of Present Illness HPI narrative: Patient brought here from home by . Complains of sudden onset right flank pain with hematuria at 5:00 a.m. this morning. As urinary frequency. History of kidney stone with lithotripsy, 7 mm stone in the past. Patient denies does not want a test. Is not . Patient in no distress. Patient seen here earlier this month for abdominal pain. Did follow up with obstetrics gynecology physician for pelvic congestion syndrome and improving with prescription medication hormone replacement. She states this is a different pain today. Related Data Home Medications Medication Instructions Recorded Confirmed mecobalamin (vitamin B12) 1,000 3,000 mcg PO DAILY 06/09/22 11/17/22 mcg lozenges omega 4-adr-cnc-fish oil 300 1 cap PO DAILY 06/09/22 11/17/22 mg-1,000 mg capsule (Fish Oil) Women's Probiotic 1 cap PO DAILY 10/05/22 11/17/22 ferrous sulfate 45 mg PO DAILY 10/05/22 11/17/22 loratadine 10 mg tablet 10 mg PO DAILY 10/05/22 11/17/22 vitamin with calcium 1 tab PO DAILY 10/05/22 11/17/22 no.72-iron 27 mg-folic acid 1 mg tablet (M-Rey Plus) Previous Rx's Medication Instructions Recorded propranolol 20 mg tablet 20 mg PO ONCE PRN panic #14 tabs 09/17/22 ketorolac 10 mg tablet 10 mg PO Q6H PRN pain #14 tabs 12/31/22 norethindrone (contraceptive) 0.35 0.35 mg PO DAILY contraception #84 01/02/23 mg tablet tabs hydrocodone 5 mg-acetaminophen 325 1 tab PO Q6H PRN pain #20 tabs 01/13/23 mg tablet ibuprofen 800 mg tablet 800 mg PO Q8H PRN pain #20 tabs 01/13/23 ondansetron 4 mg disintegrating 4 mg PO Q8H PRN nausea and 01/13/23 tablet vomiting #10 tabs tamsulosin 0.4 mg capsule 0.4 mg PO DAILY #7 caps 01/13/23 Allergies Allergy/AdvReac Type Severity Reaction Status Date / Time No Known Drug Allergies Allergy Verified 11/17/22 14:56 Review of Systems Review of Systems Narrative: GENERAL: negative chills, fatigue, malaise, fever, sweats. HEENT: negative sinus pain, ear pain, sore throat RESPIRATORY: negative dyspnea, cough CARDIOVASCULAR: negative chest pain, palpitations GASTROINTESTINAL: negative nausea, vomiting, positive flank and abdominal pain : negative dysuria, positive frequency, hematuria MUSCULOSKELETAL: negative muscle or bony pain SKIN: negative rash, skin lesions NEUROLOGIC: negative weakness, numbness ROS Unobtainable: All systems reviewed & are unremarkable except as noted in HPI and below Patient History Medical History Depression (~2016) ADHD (~2009) Dyspareunia White coat syndrome with high blood pressure but without hypertension Suicidal ideation Environmental allergies Spinal headache GERD (gastroesophageal reflux disease) Anxiety (~2016) OCD (obsessive compulsive disorder) (~2016) Surgical History Anesthesia H/O lithotripsy (~04/2018) Family History Mother Migraine Brother Environmental allergies Asthma Grandfather Heart disease Heart attack Pacemaker Congenital anomaly of kidney Grandfather Diabetes mellitus Lung disease Grandmother Hypothyroidism OCD (obsessive compulsive disorder) B12 deficiency Neuropathy Family/Other Crohn's disease Family/Other Eclampsia hemorrhage Social History marital status: number of children: 1 household members: spouse and children lives independently: Yes caregiver/support person: Yes housing: apartment pets and animals: Yes (2 cats, manages litter box) education level: college (some college) occupational status: unemployed current occupational exposures/hazards: No yazmin/christianity: Yazidi special yazmin needs: No travel history: recent (cross-country domestic move) seatbelt use: always water heater temp set < 120 deg: Yes working smoke detector in home: Yes fire extinguisher in home: Yes carbon monox detector in home: Yes firearms in home: No do you feel safe at home: Yes Smoking Status: Never smoker second hand exposure: No alcohol intake: former (very rarely when not ) substance use type: does not use and marijuana (as a teenager, never as an adult) during the past year weight has: other (pt's other child was only ~1 year old when she got ) daily servings fruits/ve-4 caffeine: Yes (rarely) Type(s) of exercise: none Smoking Status: Never smoker alcohol intake frequency: 0-2 drinks per day Substance Use Type: does not use Exam Narrative Exam Narrative: GENERAL: in no distress, not toxic not dyspneic HEAD: Normocephalic. EYES: Pupils equal round ENT: Mucous membranes moist. NECK: Trachea midline. CARDIOVASCULAR: Regular rate and rhythm RESPIRATORY: Clear to auscultation. Breath sounds equal bilaterally. No wheezes, rales, or rhonchi. GASTROINTESTINAL: Abdomen soft, mild right lower quadrant tenderness no peritoneal signs bowel sounds are present. No CVA tenderness. EXTREMITIES: No gross deformities. BACK: No flank tenderness. NEURO: AOx4. SKIN: Warm and dry PSYCH: Not anxious, is cooperative Initial Vital Signs Initial Vital Signs: Vital Signs Temperature 98.7 F 01/13/23 08:28 Pulse Rate 83 01/13/23 08:28 Respiratory Rate 18 01/13/23 08:28 Blood Pressure 124/70 01/13/23 08:28 Pulse Oximetry 99 01/13/23 08:28 Oxygen Delivery Method Room Air 01/13/23 08:28 Course Orders Ordered: ED Orders 01/13/23 08:42 CT kidney ureter bladder (KUB) Stat 01/13/23 08:48 Complete Blood Count AUTO DIFF Stat Comprehensive Metabolic Panel Stat Discontinued Medications Sodium Chloride (Normal Saline 0.9%) 1,000 mls @ 1,000 mls/hr IV BOLUS ONE Stop: 01/13/23 09:41 Last Admin: 01/13/23 09:01 Dose: 1,000 mls/hr Documented By: EDDY Ketorolac Tromethamine (Ketorolac 30 Mg/Ml Vial) 15 mg IV NOW ONE Stop: 01/13/23 08:43 Last Admin: 01/13/23 08:58 Dose: 15 mg Documented By: EDDY Morphine Sulfate (Morphine 4 Mg/Ml Inj) 4 mg IV NOW ONE Stop: 01/13/23 08:43 Last Admin: 01/13/23 09:02 Dose: 4 mg Documented By: EDDY Ondansetron HCl (Ondansetron 4 Mg/2 Ml Inj) 4 mg IV NOW ONE Stop: 01/13/23 08:43 Last Admin: 01/13/23 09:00 Dose: 4 mg Documented By: EDDY Tamsulosin HCl (Tamsulosin 0.4 Mg Capsule) 0.4 mg PO NOW ONE Stop: 01/13/23 09:27 Last Admin: 01/13/23 09:51 Dose: 0.4 mg Documented By: EDDY Vital Signs Vital signs: Vital Signs - 8 hr 01/13/23 08:28 01/13/23 08:28 01/13/23 08:28 Temperature 98.7 F Pulse Rate 83 78 Respiratory Rate 18 Blood Pressure 124/70 125/69 Pulse Oximetry 99 100 Oxygen Delivery Method Room Air 01/13/23 08:30 01/13/23 08:30 01/13/23 08:54 Temperature Pulse Rate 77 79 Respiratory Rate Blood Pressure 122/74 Pulse Oximetry 100 100 Oxygen Delivery Method 01/13/23 08:54 01/13/23 09:00 01/13/23 09:00 Temperature Pulse Rate 81 Respiratory Rate Blood Pressure 122/82 126/84 Pulse Oximetry 100 Oxygen Delivery Method 01/13/23 09:06 01/13/23 09:06 01/13/23 09:15 Temperature Pulse Rate 78 82 Respiratory Rate Blood Pressure 120/56 L Pulse Oximetry 100 100 Oxygen Delivery Method 01/13/23 09:15 01/13/23 09:30 01/13/23 09:30 Temperature Pulse Rate 89 Respiratory Rate Blood Pressure 121/59 L 111/55 L Pulse Oximetry 99 Oxygen Delivery Method 01/13/23 09:45 01/13/23 09:45 01/13/23 09:50 Temperature Pulse Rate 80 Respiratory Rate Blood Pressure 107/52 L 99/55 L Pulse Oximetry 98 Oxygen Delivery Method 01/13/23 09:50 Temperature Pulse Rate 77 Respiratory Rate Blood Pressure Pulse Oximetry 99 Oxygen Delivery Method MDM - Abdominal Pain Lab Data 01/13/23 08:48 01/13/23 08:48 Labs: Lab Results 01/13/23 Range/Units 08:48 WBC 9.5 (4.5-11.0) X10^3/uL RBC 4.50 (4.0-5.2) X10^6/uL Hgb 13.9 (12.0-16.0) g/dL Hct 39.7 (36-46) % MCV 88.3 (80-100) fL MCH 30.8 (26-34) PG MCHC 34.9 (30-36) % RDW 13.2 (11.6-14.8) % Plt Count 259 (150-400) X10^3/uL Neut % (Auto) 76.0 H (50-75) % Lymph % (Auto) 18.5 L (25-40) % [place] % (Auto) 4.4 (3-14) % Eos % (Auto) 0.9 L (2-4) % Baso % (Auto) 0.2 (0-2) % Neut # (Auto) 7200 H (4636-5573) /uL Lymph # (Auto) 1800 (9516-1863) /uL [place] # (Auto) 400 (0-900) /uL Eos # (Auto) 100 (0-450) /uL Baso # (Auto) 0 (0-100) /uL Sodium 137 (137-145) mmol/L Potassium 3.7 (3.4-5.1) mmol/L Chloride 106 (98-107) mmol/L Carbon Dioxide 23 (22-32) mmol/L BUN 13 (7-17) mg/dL Creatinine 0.63 (0.52-1.04) mg/dL Estimated GFR > 60 (>60) mL/min BUN/Creatinine Ratio 20.6 (6-22) Glucose 104 H (70-100) mg/dL Calcium 9.5 (8.4-10.2) mg/dL Total Bilirubin 1.0 (0.2-1.3) mg/dL AST 26 (14-36) IU/L ALT 26 (<35) IU/L Alkaline Phosphatase 82 (38-126) U/L Total Protein 7.3 (6.3-8.2) g/dL Albumin 4.4 (3.5-5.0) g/dL Globulin 2.9 (1.7-4.1) g/dL Albumin/Globulin Ratio 1.5 (1.0-2.8) Point of care testing: Point of Care Testing Test Results Negative Urine Dip Bedside Urine Glucose Negative Bedside Urine Bilirubin - Negative Bedside Urine Ketone - Negative Urine Specific [place] 1.020 Bedside Urine Occult Blood +++ Bedside Urine pH 6.0 Bedside Urine Protein +/- 15 Bedside Urine Urobilinogen - Negative Bedside Urine Nitrite - Negative Bedside Urine Leukocytes +/- [address] scan - abdomen/pelvis: Radiologist's Impression: [address] [address] [address] Scan Report Signed Patient: Sue Christian MR#: [id number] : 2000 Acct:[id number] Age/Sex: 22 / F Date of Service: 01/13/23 Loc: ED Accession Number: [id number] Procedure: CT kidney ureter bladder (KUB) Ordering Provider: Harsha Valadez MD PROCEDURE: CT KIDNEY URETER BLADDER (KUB) INDICATIONS: Right flank pain TECHNIQUE: Axial sections were acquired from the lung bases to the pubic symphysis. Coronal and sagittal reformats were performed. For radiation dose reduction, the following was used: automated exposure control, adjustment of mA and/or kV according to patient size. COMPARISON: [facility], CT, CT ABDOMEN PELVIS W CON, 12/31/2022, 0:40. FINDINGS: Image quality: Excellent. Lung bases: Unremarkable. Heart: No significant findings. URINARY: Right Kidney/ureter: A few right sided renal stones are again noted. Largest measures 7 mm in measures approximately 360 Hounsfield units in density. There is mild right hydronephrosis secondary to a 4 mm stone at the junction of the right renal pelvis and proximal right ureter. The right ureter is otherwise normal in course and caliber. Left Kidney: Multiple small nonobstructing left renal stones are again noted. Largest measures 4 mm. Left Ureter: No hydroureter. Bladder: Normal wall thickness. No stones. ABDOMEN: Liver: Unremarkable. Gallbladder: Unremarkable. Biliary ducts: Unremarkable. Pancreas: Unremarkable. Spleen: Unremarkable. Adrenal Glands: Unremarkable. Stomach and Bowel: Stomach, small bowel loops, and colon are unremarkable. No acute inflammatory changes of the right lower quadrant. Peritoneum: No abnormal intraperitoneal fluid. No free air. Ventral Wall: No hernia. Abdominal Nodes: No enlarged retroperitoneal or mesenteric lymph nodes. Vessels: Aorta and inferior vena cava are normal in size. PELVIS: Pelvic Organs: Unremarkable. Pelvic Nodes: Unremarkable. Miscellaneous: No inguinal hernias are seen. Mild prominent pelvic vessels as before. Bones: Unremarkable. IMPRESSION: 1. Mild right hydronephrosis secondary to a 4 mm stone at the junction of the right renal pelvis and proximal right ureter. No significant perinephric or periureteral stranding. Multiple other right renal stones are again noted with the largest measuring 7 mm (360 Hounsfield units). 2. Multiple nonobstructing left renal stones with mild prominent renal calices. Largest measures approximately mm in size. 3. No findings to suggest acute inflammatory changes in the right lower quadrant. Dictated by: Rojas Bryant M.D. on 01/13/2023 at 9:08 Approved by: Rojas Bryant M.D. on 01/13/2023 at 9:15 [facility] Narrative Medical decision making narrative: Patient brought here from home by . Complains of sudden onset right flank pain with hematuria at 5:00 a.m. this morning. As urinary frequency. History of 7 mm stone in the past with lithotripsy Patient denies does not want a test. Is not . Patient in no distress. Patient seen here earlier this month for abdominal pain. Did follow up with obstetrics gynecology physician for pelvic congestion syndrome and improving with prescription medication hormone replacement. She states this is a different pain today After history and exam CBC CMP urinalysis CT KUB Toradol morphine Zofran normal saline MDM CC: Right flank pain Complicating co-morbidities: None Data collected from: Patient Medical records reviewed: No recent visit for this complaint Differential considered: Includes but not limited to pyelonephritis UTI kidney stone ureteral stone appendicitis bowel obstruction colitis Exam documented above, pertinent findings include: Mild right lower quadrant tenderness no peritoneal signs Lab Test results independently reviewed as above. Pertinent findings: WBC 9.5 sodium 137 BUN 13 creatinine 0.63 GFR greater than 60, urine positive for blood. Negative nitrite Imaging studies independently reviewed: CT KUB right proximal ureteral 4 mm stone Treatments: Toradol Zofran morphine normal saline Flomax Re-evaluations: 9:37 a.m.. Patient pain-free. Reviewed reviewed results with patient. At this time they are reassuring. Referral for Urology will be provided. 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 Does not need work note. will be watching child. Not toxic at discharge. Return precautions reviewed with her. She desires discharge home. Discussion: Appropriate for discharge home. Exam and laboratory studies imaging otherwise reassuring. Pain is controlled. Return precautions reviewed with her. Referral for Urology provided. Nontoxic at discharge. No antibiotics indicated at this time. Onset just prior to arrival. No fever. Diagnosis: Ureteral stone Discharge Plan Departure Patient Disposition: Home Clinical Impression: Right ureteral calculus Instructions: DI for Kidney Stones Activity Restrictions/Additional Instructions: No driving operating machinery today or when taking prescribed medication. Be sure to have family or support to take care of the child when taking pain medication. Keep well hydrated. Return if worse if any questions or concerns. Call provided urology office today for office for re-evaluation in a week. Please do try to collect the kidney stone to bring to the office. Did a CT scan does show a 4 mm right side kidney stone. This should be able to pass easily. Prescriptions: New ibuprofen 800 mg tablet 800 mg PO Q8H PRN (Reason: pain) Qty: 20 0RF hydrocodone-acetaminophen 5-325 mg tablet 1 tab PO Q6H PRN (Reason: pain) Qty: 20 0RF tamsulosin 0.4 mg capsule 0.4 mg PO DAILY Qty: 7 0RF ondansetron 4 mg tablet,disintegrating 4 mg PO Q8H PRN (Reason: nausea and vomiting) Qty: 10 0RF No Action norethindrone (contraceptive) 0.35 mg tablet 0.35 mg PO DAILY Qty: 84 4RF propranolol 20 mg tablet 20 mg PO ONCE PRN (Reason: panic) Qty: 14 0RF Patient Comments: Has not taken yet Rx Instructions: up to 2 doses in 24h mecobalamin (vitamin B12) 1,000 mcg lozenge 3,000 mcg PO DAILY Rx Instructions: allow to dissolve in mouth OR may chew lightly before swallowing omega 1-psn-nhy-fish oil [Fish Oil] 300-1,000 mg capsule 1 cap PO DAILY M-Rey Plus 27 mg iron- 1 mg tablet 1 tab PO DAILY loratadine 10 mg tablet 10 mg PO DAILY ferrous sulfate tablet 45 mg PO DAILY Rx Instructions: Take 1/2 tablet per day for anemia Women's Probiotic capsule 1 cap PO DAILY ketorolac 10 mg tablet 10 mg PO Q6H PRN (Reason: pain) Qty: 14 0RF Referrals: Zac Jolly MD [Physician] - Provider,Myles JEAN [Primary Care Provider] - Harsha Paris MD [Physician] - Stand Alone Forms: Patient Portal/API
[2023-01-13] MEDS: KETOROLAC 30 MG/ML VIAL 15 MG IV (08:58)
[2023-01-13 08:59] LABS: Add Manual Diff / Slide Review NO; Basophils Absolute Auto 0 /uL (0-100); Basophils Percent Auto 0.2 % (0-2); Eosinophils Absolute Auto 100 /uL (0-450); Eosinophils Percent Auto 0.9 % (2-4); Hematocrit 39.7 % (36-46); Hemoglobin 13.9 g/dL (12.0-16.0); Lymphocytes Absolute Auto 1800 /uL (1100-4500); Lymphocytes Percent Auto 18.5 % (25-40); Mean Corpuscular HGB Conc 34.9 % (30-36); Mean Corpuscular Hemoglobin 30.8 PG (26-34); Mean Corpuscular Volume 88.3 fL (80-100); Monocytes Absolute Auto 400 /uL (0-900); Monocytes Percent Auto 4.4 % (3-14); Neutrophils Absolute Auto 7200 /uL (1500-7000); Platelet Count 259 X10^3/uL (150-400); Red Cell Distribution Width 13.2 % (11.6-14.8); White Blood Cell Count 9.5 X10^3/uL (4.5-11.0)
[2023-01-13] MEDS: ONDANSETRON 4 MG/2 ML INJ IV (09:00)
[2023-01-13] MEDS: SODIUM CHLORIDE 0.9% 1,000 ML 1000 ML IV (09:01)
[2023-01-13] MEDS: MORPHINE 4 MG/ML INJ IV (09:02)
[2023-01-13 09:25] LABS: Alanine Aminotransferase 26 IU/L (<35); Albumin 4.4 g/dL (3.5-5.0); Albumin Globulin Ratio 1.5 (1.0-2.8); Alkaline Phosphatase 82 U/L (38-126); Aspartate Aminotransferase 26 IU/L (14-36); BUN Creatinine Ratio 20.6 (6-22); Blood Urea Nitrogen 13 mg/dL (7-17); Calcium 9.5 mg/dL (8.4-10.2); Carbon Dioxide 23 mmol/L (22-32); Chloride 106 mmol/L (98-107); Estimated Glomerular Filt Rate > 60 mL/min (>60); Globulin 2.9 g/dL (1.7-4.1); Glucose 104 mg/dL (70-100); HEMOLYSIS < 15 (0-50); Potassium 3.7 mmol/L (3.4-5.1); Sodium 137 mmol/L (137-145); Total Protein 7.3 g/dL (6.3-8.2)
[2023-01-13] MEDS: TAMSULOSIN 0.4 MG CAPSULE PO (09:51)
== END 2023-01-13 09:56 | disposition home or self-care (01) ==
PROVIDERS: Emergency Provider Emergency Medicine
DX: N20.1 Calculus of ureter (principal); Z87.442 Personal history of urinary calculi
CPT/HCPCS: 36415; 74176; 80053; 81003; 81025; 85025; 96361; 96374; 96375; 99284; J1885; J2270; J2405

== ENCOUNTER → 2023-05-04 11:16 | Outpatient (CLI) | payer OTHER, SELFPAY ==
--- NOTE | 2023-05-04 | DI.US.S_ITS ---
PROCEDURE: US RENAL COMPLETE INDICATIONS: KIDNEY STONES TECHNIQUE: Real-time scanning was performed of the kidneys and bladder, with image documentation. COMPARISON: [facility], CT, CT KIDNEY URETER BLADDER (KUB), 01/13/2023, 8:47. FINDINGS: Kidneys: Kidneys are normal in size. Echogenic stones are seen in both kidneys, the stone in the right kidney measuring 8 x 8 mm in the inferior part of the right kidney. The stone in the left kidney measures 7 x 5 mm in the inferior portion of the left kidney. Moderate pelviectasis seen in right kidney. Trace pelviectasis seen in the left kidney. Right kidney measures 11.3 cm in length and the left kidney measures 11.4 cm in length. Cortex of the right kidney is slightly thinned at 9 mm; the left renal cortex measures 1.6 cm. No renal cysts are seen bilaterally. No renal mass is seen bilaterally. The proximal right ureter is slightly prominent at 3.5 mm. Bladder: Pre-void bladder volume is 238 mL. Post-void residual is 20 mL. Pre-void images demonstrate no intraluminal masses or stones. On pre-void images, < bilateral ureteral jets are noted with color Doppler interrogation. (Of note, ureteral jets may not be detectable in up to 25% of cases due to insufficient differences in specific gravity between ureteral and bladder urine). Miscellaneous: No free pelvic fluid. IMPRESSION: Bilateral renal stones again seen; now measuring 8 mm on the right and 7 mm on the left with moderate pelvicaliectasis on the right and trace pelvicaliectasis on the left . Dictated by: Casper Sanchez M.D. on 05/04/2023 at 18:28 Approved by: Casper Sanchez M.D. on 05/04/2023 at 18:36
== END ==
LOC: US 11:16
PROVIDERS: Referring Provider Physician Assistant Medical; Visit Provider Physician Assistant Medical
DX: N20.0 Calculus of kidney (principal)
CPT/HCPCS: 76770

== ENCOUNTER 2024-02-14 04:02 | Emergency (ER) | payer OTHER, SELFPAY ==
[2024-02-14 04:09] VITALS: BP 132/86; PULSE 90; O2SAT 100
--- NOTE | 2024-02-14 04:12 | DI.CT.S_ITS ---
PROCEDURE: CT KIDNEY URETER BLADDER (KUB) INDICATIONS: BILAT FLANK PAIN, HEMATURIA, HX STONES TECHNIQUE: Axial sections were acquired from the lung bases to the pubic symphysis. Coronal and sagittal reformats were performed. For radiation dose reduction, the following was used: automated exposure control, adjustment of mA and/or kV according to patient size. COMPARISON: [facility], CT, CT KIDNEY URETER BLADDER (KUB), 01/13/2023, 8:47. FINDINGS: Lower thorax: The lung bases are clear. Heart size normal. No hiatal hernia. Liver: Normal in size and attenuation. No contour deformity present. Biliary system: No calcified cholelithiasis or pericholecystic inflammation. No intra or extrahepatic bile duct dilatation. Pancreas: Unremarkable without mass or inflammation evident. Spleen: Normal in size and density. Adrenals: Normal morphology and density. Reproductive system: Unremarkable as visualized. Urinary system: Bilateral nonobstructing renal calculi measure up to 7 mm on the right. No hydronephrosis or hydroureter. Gastrointestinal system: The bowel is unremarkable without evidence of bowel obstruction or inflammation. The stomach appears unremarkable. Appendix: Normal appendix identified. No evidence of appendicitis. Peritoneal spaces: No mesenteric or retroperitoneal adenopathy. No free air. No free fluid. Vasculature: The IVC, aorta and iliac vasculature are unremarkable. Abdominal wall: Abdominal wall intact without evidence of ventral or inguinal hernias. Musculoskeletal: Normal bone mineralization. No acute fractures. IMPRESSION: Bilateral nonobstructing renal calculi. No hydronephrosis or obstructive uropathy. Note: This final report is concordant with the preliminary after-hours interpretation provided by Jennifer Granados MD at [facility] Approved by: Terry Trujillo M.D. on 02/14/2024 at 9:24
--- NOTE | 2024-02-14 04:12 | ED.FEMALEGU ---
HPI - Female Genitourinary General Chief complaint: Abdominal Pain Stated complaint: peeing blood, flank pain Time Seen by Provider: 02/14/24 04:05 History of Present Illness HPI Narrative: 23-year-old female with previous history of kidney stones, GERD presents by private vehicle from home for 12 hours of bilateral flank pain and hematuria. Also reporting pain around her urethra. Patient states that this is the exact same as when she has had kidney stones in the past. Patient has had to have lithotripsy for her kidney stones previously. No medications taken at home for symptoms. Last saw her urologist 6 months ago. Related Data Home Medications Medication Instructions Recorded Confirmed loratadine 10 mg tablet 10 mg PO DAILY 02/14/24 02/14/24 omeprazole 20 mg capsule,delayed 20 mg PO DAILY 02/14/24 02/14/24 release Allergies Allergy/AdvReac Type Severity Reaction Status Date / Time No Known Drug Allergies Allergy Verified 11/17/22 14:56 Patient History Medical History Depression (~2016) ADHD (~2009) Dyspareunia White coat syndrome with high blood pressure but without hypertension Suicidal ideation Environmental allergies Spinal headache GERD (gastroesophageal reflux disease) Anxiety (~2016) OCD (obsessive compulsive disorder) (~2016) Surgical History Anesthesia H/O lithotripsy (~04/2018) Family History Mother Migraine Brother Environmental allergies Asthma Grandfather Heart disease Heart attack Pacemaker Congenital anomaly of kidney Grandfather Diabetes mellitus Lung disease Grandmother Hypothyroidism OCD (obsessive compulsive disorder) B12 deficiency Neuropathy Family/Other Crohn's disease Family/Other Eclampsia hemorrhage alcohol intake frequency: 0-2 drinks per day Substance Use Type: does not use Exam Initial Vital Signs Initial Vital Signs: Vital Signs Pulse Rate 90 02/14/24 04:09 Blood Pressure 132/86 02/14/24 04:09 Pulse Oximetry 100 02/14/24 04:09 Const: Awake, alert, no acute distress, nontoxic appearing RESP: unlabored, speaking in complete sentences without dyspnea GI: Soft, minimal suprapubic tenderness to deep palpation MSK: Bilateral flank tenderness Skin: Warm, Dry, intact, no rashes Neuro: AO x3, CN II-XII grossly intact, moves all extremities Course Orders Ordered: ED Orders 02/14/24 04:10 Urine Culture Stat Urine Microscopic Stat 02/14/24 04:11 CBC Auto Diff [Complete Blood Count AUTO DIFF] Stat CMP [Comprehensive Metabolic Panel] Stat 02/14/24 04:12 CT kidney ureter bladder (KUB) Stat Discontinued Medications Sodium Chloride (Normal Saline 0.9%) 1,000 mls @ 1,000 mls/hr IV BOLUS ONE Stop: 02/14/24 05:10 Last Infusion: 02/14/24 05:13 Dose: Infused Ketorolac Tromethamine (Ketorolac 30 Mg/Ml Vial) 15 mg IV NOW ONE Stop: 02/14/24 04:12 Last Admin: 02/14/24 04:22 Dose: 15 mg Vital Signs Vital signs: Vital Signs - 8 hr 02/14/24 04:09 02/14/24 04:09 02/14/24 04:16 Temperature 98.5 F Pulse Rate 90 86 Respiratory Rate 16 Blood Pressure 132/86 132/86 Pulse Oximetry 100 100 Oxygen Delivery Method Room Air 02/14/24 04:30 02/14/24 05:01 02/14/24 05:12 Temperature Pulse Rate 91 H 84 89 Respiratory Rate Blood Pressure Pulse Oximetry 99 100 100 Oxygen Delivery Method Room Air 02/14/24 05:12 Temperature Pulse Rate Respiratory Rate Blood Pressure 106/62 Pulse Oximetry Oxygen Delivery Method MDM - Female Genitourinary Lab Data 02/14/24 04:10 02/14/24 04:10 Labs: Lab Results 02/14/24 Range/Units 04:10 WBC 7.4 (4.5-11.0) X10^3/uL RBC 4.83 (4.0-5.2) X10^6/uL Hgb 14.7 (12.0-16.0) g/dL Hct 42.2 (36-46) % MCV 87.6 (80-100) fL MCH 30.5 (26-34) PG MCHC 34.8 (30-36) % RDW 12.5 (11.6-14.8) % Plt Count 247 (150-400) X10^3/uL Neut % (Auto) 48.5 L (50-75) % Lymph % (Auto) 42.2 H (25-40) % [place] % (Auto) 6.6 (3-14) % Eos % (Auto) 2.5 (2-4) % Baso % (Auto) 0.2 (0-2) % Neut # (Auto) 3600 (6398-3981) /uL Lymph # (Auto) 3100 (2881-3720) /uL [place] # (Auto) 500 (0-900) /uL Eos # (Auto) 200 (0-450) /uL Baso # (Auto) 0 (0-100) /uL Sodium 139 (137-145) mmol/L Potassium 3.6 (3.4-5.1) mmol/L Chloride 106 (98-107) mmol/L Carbon Dioxide 25 (22-32) mmol/L BUN 11 (7-17) mg/dL Creatinine 0.69 (0.52-1.04) mg/dL Estimated GFR > 60 (>60) mL/min BUN/Creatinine Ratio 15.9 (6-22) Glucose 95 (70-100) mg/dL Calcium 9.6 (8.4-10.2) mg/dL Total Bilirubin 1.7 H (0.2-1.3) mg/dL AST 26 (14-36) IU/L ALT 17 (<35) IU/L Alkaline Phosphatase 73 (38-126) U/L Total Protein 7.8 (6.3-8.2) g/dL Albumin 4.7 (3.5-5.0) g/dL Globulin 3.1 (1.7-4.1) g/dL Albumin/Globulin Ratio 1.5 (1.0-2.8) Urine RBC None seen (0-5/HPF) Urine WBC None seen (0-5/HPF) Ur Squamous Epith Cells None seen (0-5/HPF) Urine Bacteria None seen (None) Ur Culture Indicated? Cult not indicated Vol Urine Centrifuged 10ml (spun) Point of Care Testing Test Results Negative Urine Dip Bedside Urine Glucose Negative Bedside Urine Bilirubin - Negative Bedside Urine Ketone - Negative Urine Specific [place] 1.005 Bedside Urine Occult Blood +++ Bedside Urine pH 6 Bedside Urine Protein - Negative Bedside Urine Urobilinogen - Negative Bedside Urine Nitrite - Negative Bedside Urine Leukocytes - Negative Esterase Imaging Data CT scan - abdomen/pelvis: Radiologist's Impression: Preliminary interpretation: Intrarenal stones present, no ureteral, bladder, or urethral stones. MDM Narrative Medical decision making narrative: Well-appearing patient with flank pain and hematuria at home. Physical exam is relatively benign, but patient complaining of pain in her flanks. Occult blood seen on urinalysis. No evidence of infection. Based on patient's history of stones requiring lithotripsy and nature of pain CT scan will be ordered. Normal saline and Toradol ordered. Laboratory work reviewed, no significant abnormalities identified. Incidental note made of T bili 1.7, however this value appears to have fluctuated several times between 2022 and now. Other liver enzymes normal. CT imaging negative for acute findings. No visualized stones in any location that could cause pain. Patient informed of all lab and imaging findings. She was resting comfortably in bed, no new complaints. Patient relieved to know that there is no stone blocking her ureters or bladder. She was advised to continue to drink lots of fluids, she may use [id number] creams for relief of her urethra still seems to be causing her pain. Otherwise she should follow up with her urologist when able, especially if she continues to experience pains. Discharge Plan Departure Patient Disposition: Home Clinical Impression: Flank pain, Hematuria Instructions: DI for Hematuria Activity Restrictions/Additional Instructions: Your CT scan showed some stones inside of the kidney itself, but no stones in your ureter, bladder, or urethra. Your blood work including kidney function is normal today. You may have already passed a stone, in which case we would not be able to see it on the CT scan. Make sure to drink plenty of fluids. If you continue to have irritation around your bladder or urethra you may use gentle creams for comfort, however this should improve soon. If you continue to experience flank pains and blood in your urine then I recommend following up with your urologist Prescriptions: No Action loratadine 10 mg tablet 10 mg PO DAILY omeprazole 20 mg capsule,delayed release(DR/EC) 20 mg PO DAILY Referrals: ProviderMyles [Primary Care Provider] - Stand Alone Forms: Patient Portal/API/Survey
[2024-02-14 04:16] VITALS: BP 132/86; PULSE 86; RESP 16; TEMP 36.9; O2SAT 100; BMI 26.9
[2024-02-14] MEDS: SODIUM CHLORIDE 0.9% 1,000 ML 1000 ML IV (04:21)
[2024-02-14] MEDS: KETOROLAC 30 MG/ML VIAL 15 MG IV (04:22)
[2024-02-14 04:28] LABS: Add Manual Diff / Slide Review NO; Alanine Aminotransferase 17 IU/L (<35); Albumin 4.7 g/dL (3.5-5.0); Albumin Globulin Ratio 1.5 (1.0-2.8); Alkaline Phosphatase 73 U/L (38-126); Aspartate Aminotransferase 26 IU/L (14-36); BUN Creatinine Ratio 15.9 (6-22); Basophils Absolute Auto 0 /uL (0-100); Basophils Percent Auto 0.2 % (0-2); Bilirubin Total 1.7 mg/dL (0.2-1.3); Blood Urea Nitrogen 11 mg/dL (7-17); Calcium 9.6 mg/dL (8.4-10.2); Carbon Dioxide 25 mmol/L (22-32); Chloride 106 mmol/L (98-107); Eosinophils Absolute Auto 200 /uL (0-450); Eosinophils Percent Auto 2.5 % (2-4); Estimated Glomerular Filt Rate > 60 mL/min (>60); Globulin 3.1 g/dL (1.7-4.1); Glucose 95 mg/dL (70-100); HEMOLYSIS < 15 (0-50); Hematocrit 42.2 % (36-46); Hemoglobin 14.7 g/dL (12.0-16.0); Lymphocytes Absolute Auto 3100 /uL (1100-4500); Lymphocytes Percent Auto 42.2 % (25-40); Mean Corpuscular HGB Conc 34.8 % (30-36); Mean Corpuscular Hemoglobin 30.5 PG (26-34); Mean Corpuscular Volume 87.6 fL (80-100); Monocytes Absolute Auto 500 /uL (0-900); Monocytes Percent Auto 6.6 % (3-14); Neutrophils Absolute Auto 3600 /uL (1500-7000); Neutrophils Percent Auto 48.5 % (50-75); Platelet Count 247 X10^3/uL (150-400); Potassium 3.6 mmol/L (3.4-5.1); Red Blood Cell Count 4.83 X10^6/uL (4.0-5.2); Red Cell Distribution Width 12.5 % (11.6-14.8); Sodium 139 mmol/L (137-145); Total Protein 7.8 g/dL (6.3-8.2); White Blood Cell Count 7.4 X10^3/uL (4.5-11.0)
[2024-02-14 04:30] VITALS: PULSE 91; O2SAT 99
[2024-02-14 04:39] LABS: Bacteria Urine None Seen; Culture Indicated Urine Cult Not Indicated; RBC Urine None Seen (0-5/HPF); Squamous Epithelial Cell Urine None Seen (0-5/HPF); Urine Volume 10mL (spun); WBC Urine None Seen (0-5/HPF)
[2024-02-14 05:01] VITALS: PULSE 84; O2SAT 100
[2024-02-14 05:12] VITALS: BP 106/62; PULSE 89; O2SAT 100
== END 2024-02-14 05:28 | disposition home or self-care (01) ==
PROVIDERS: Emergency Provider Emergency Medicine
DX: R10.9 Unspecified abdominal pain (principal); R31.9 Hematuria, unspecified; Z87.442 Personal history of urinary calculi
CPT/HCPCS: 36415; 74176; 80053; 81003; 81015; 81025; 85025; 87086; 96361; 96374; 99284; J1885

== ENCOUNTER 2024-06-12 10:49 | Emergency (ER) | payer OTHER, SELFPAY ==
[2024-06-12 11:06] VITALS: BP 116/71; PULSE 79; RESP 18; TEMP 37; O2SAT 98; BMI 23.6
--- NOTE | 2024-06-12 11:21 | ED_ITS ---
HPI - Female Genitourinary <Seda Weiss PA-C - Last Filed: 06/12/24 13:18> General Chief complaint: Urogenital-Female Stated complaint: Brown Urine Time Seen by Provider: 06/12/24 11:13 History of Present Illness HPI Narrative: Ms. Christian is a pleasant 24-year-old female with a past medical history of kidney stones, pelvic congestion syndrome, GERD who presents to the emergency department for brown urine since yesterday. Patient states last night when she urinated it was dark brown and she is never seen this color urine before even with prior kidney stones. States that she has had mild frequency, dysuria, left flank pain. States she has not in severe pain like she has been with prior kidney stones but she has a ?twinge? of pain in the left flank which he typically experiences with the start of a stone. Denies any strenuous exercise or new workout activity yesterday but states that she was shopping and walking for a long time. Reports that when she woke up this morning the urine was still brown however she then drink 40 oz of water when she urinated in the emergency department it was a normal color. 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 Some nausea. Denies fevers, chills, vomiting, abdominal pain, muscle pain. Only medications prior to arrival were daily omeprazole. She has had lithotripsy in the past for prior stones. Reports some mild issues emptying her bladder since have her two children. Urologist: [facility], Tiffanie Almanza PA-C Related Data Home Medications Medication Instructions Recorded Confirmed loratadine 10 mg tablet 10 mg PO DAILY 02/14/24 02/14/24 omeprazole 20 mg capsule,delayed 20 mg PO DAILY 02/14/24 02/14/24 release Previous Rx's Medication Instructions Recorded ketorolac 10 mg tablet 10 mg PO Q8H PRN pain #14 tabs 06/12/24 ondansetron 4 mg disintegrating 4 mg PO Q8H PRN nausea and 06/12/24 tablet vomiting #14 tabs oxycodone 5 mg tablet 5 mg PO Q6H PRN pain #10 tabs 06/12/24 tamsulosin 0.4 mg capsule (Flomax) 0.4 mg PO DAILY #20 caps 06/12/24 Allergies Allergy/AdvReac Type Severity Reaction Status Date / Time No Known Drug Allergies Allergy Verified 11/17/22 14:56 Review of Systems <Seda Weiss PA-C - Last Filed: 06/12/24 13:18> Review of Systems ROS Unobtainable: All systems reviewed & are unremarkable except as noted in HPI and below Patient History <Seda Weiss PA-C - Last Filed: 06/12/24 13:18> Medical History Depression (~2016) ADHD (~2009) Dyspareunia White coat syndrome with high blood pressure but without hypertension Suicidal ideation Environmental allergies Spinal headache GERD (gastroesophageal reflux disease) Anxiety (~2016) OCD (obsessive compulsive disorder) (~2016) Surgical History Anesthesia H/O lithotripsy (~04/2018) Family History Mother Migraine Brother Environmental allergies Asthma Grandfather Heart disease Heart attack Pacemaker Congenital anomaly of kidney Grandfather Diabetes mellitus Lung disease Grandmother Hypothyroidism OCD (obsessive compulsive disorder) B12 deficiency Neuropathy Family/Other Crohn's disease Family/Other Eclampsia hemorrhage Exam <Seda Weiss PA-C - Last Filed: 06/12/24 13:18> Narrative Exam Narrative: GENERAL: 24 year old patient appears stated age. Well-developed patient, in no acute distress. HEAD: Atraumatic. Normocephalic. NECK: Trachea midline. Cervical ROM intact. CARDIOVASCULAR: Regular rate. RESPIRATORY: ?Nonlabored respirations. ?Speaking in clear, full sentences GASTROINTESTINAL: Abdomen soft, non-tender, nondistended. Normal bowel sounds. EXTREMITIES: No edema or joint tenderness. BACK: No reproducible CVA tenderness but there is subjective pain in the left flank region. NEURO: AOx3. ?Clear speech. ?Moves all 4 extremities appropriately. SKIN: No rash or erythema of visible areas Initial Vital Signs Initial Vital Signs: Vital Signs Temperature 98.6 F 06/12/24 11:06 Pulse Rate 79 06/12/24 11:06 Respiratory Rate 18 06/12/24 11:06 Blood Pressure 116/71 06/12/24 11:06 Pulse Oximetry 98 06/12/24 11:06 Oxygen Delivery Method Room Air 06/12/24 11:06 <Neema Rivero MD - Last Filed: 06/12/24 16:02> Initial Vital Signs Initial Vital Signs: Vital Signs Temperature 98.6 F 06/12/24 11:06 Pulse Rate 79 06/12/24 11:06 Respiratory Rate 18 06/12/24 11:06 Blood Pressure 116/71 06/12/24 11:06 Pulse Oximetry 98 06/12/24 11:06 Oxygen Delivery Method Room Air 06/12/24 11:06 Course <Seda Weiss PA-C - Last Filed: 06/12/24 13:18> Orders Ordered: ED Orders 06/12/24 11:15 Urine Culture Stat Urine Microscopic Stat 06/12/24 11:30 US renal complete Stat XR KUB Stat 06/12/24 11:37 CBC Auto Diff [Complete Blood Count AUTO DIFF] Stat CK [Creatine Kinase] Stat CMP [Comprehensive Metabolic Panel] Stat Discontinued Medications Sodium Chloride (Normal Saline 0.9%) 1,000 mls @ 1,000 mls/hr IV BOLUS ONE Stop: 06/12/24 12:29 Last Infusion: 06/12/24 12:58 Dose: Infused Documented By: Admin: 06/12/24 12:03 Dose: 1,000 mls/hr Documented By: CANDELARIO Ketorolac Tromethamine (Ketorolac 30 Mg/Ml Vial) 15 mg IV NOW ONE Stop: 06/12/24 12:31 Last Admin: 06/12/24 12:50 Dose: 15 mg Documented By: CANDELARIO Ondansetron HCl (Ondansetron 4 Mg/2 Ml Inj) 4 mg IV NOW PRN PRN Reason: Nausea And Vomiting Ondansetron HCl (Ondansetron 4 Mg Odt) 4 mg SL NOW PRN PRN Reason: Nausea And Vomiting Vital Signs Vital signs: Vital Signs - 8 hr 06/12/24 11:06 06/12/24 12:55 Temperature 98.6 F Pulse Rate 79 78 Respiratory Rate 18 18 Blood Pressure 116/71 113/78 Pulse Oximetry 98 99 Oxygen Delivery Method Room Air Room Air <Neema Rivero MD - Last Filed: 06/12/24 16:02> Orders Ordered: ED Orders 06/12/24 11:15 Urine Culture Stat Urine Microscopic Stat 06/12/24 11:30 US renal complete Stat XR KUB Stat 06/12/24 11:37 CBC Auto Diff [Complete Blood Count AUTO DIFF] Stat CK [Creatine Kinase] Stat CMP [Comprehensive Metabolic Panel] Stat Discontinued Medications Sodium Chloride (Normal Saline 0.9%) 1,000 mls @ 1,000 mls/hr IV BOLUS ONE Stop: 06/12/24 12:29 Last Infusion: 06/12/24 12:58 Dose: Infused Documented By: Admin: 06/12/24 12:03 Dose: 1,000 mls/hr Documented By: CANDELARIO Ketorolac Tromethamine (Ketorolac 30 Mg/Ml Vial) 15 mg IV NOW ONE Stop: 06/12/24 12:31 Last Admin: 06/12/24 12:50 Dose: 15 mg Documented By: CANDELARIO Ondansetron HCl (Ondansetron 4 Mg/2 Ml Inj) 4 mg IV NOW PRN PRN Reason: Nausea And Vomiting Ondansetron HCl (Ondansetron 4 Mg Odt) 4 mg SL NOW PRN PRN Reason: Nausea And Vomiting Vital Signs Vital signs: Vital Signs - 8 hr 06/12/24 11:06 06/12/24 12:55 Temperature 98.6 F Pulse Rate 79 78 Respiratory Rate 18 18 Blood Pressure 116/71 113/78 Pulse Oximetry 98 99 Oxygen Delivery Method Room Air Room Air MDM - Female Genitourinary <Seda Weiss PA-C - Last Filed: 06/12/24 13:18> Medical Records Attestation: I reviewed the patient's medical records. Medical records narrative: ED visit for flank pain and hematuria 02/14/2024, right ureteral calculus 01/13/2023, pelvic congestion syndrome 12/31/2022 Lab Data 06/12/24 11:37 06/12/24 11:37 Labs: Lab Results 06/12/24 06/12/24 Range/Units 11:15 11:37 WBC 4.5 (4.5-11.0) X10^3/uL RBC 4.47 (4.0-5.2) X10^6/uL Hgb 13.6 (12.0-16.0) g/dL Hct 39.2 (36-46) % MCV 87.7 (80-100) fL MCH 30.5 (26-34) PG MCHC 34.8 (30-36) % RDW 12.9 (11.6-14.8) % Plt Count 210 (150-400) X10^3/uL Neut % (Auto) 53.1 (50-75) % Lymph % (Auto) 38.2 (25-40) % [place] % (Auto) 6.7 (3-14) % Eos % (Auto) 1.6 L (2-4) % Baso % (Auto) 0.4 (0-2) % Neut # (Auto) 2400 (6765-0681) /uL Lymph # (Auto) 1700 (9114-6144) /uL [place] # (Auto) 300 (0-900) /uL Eos # (Auto) 100 (0-450) /uL Baso # (Auto) 0 (0-100) /uL Sodium 140 (137-145) mmol/L Potassium 4.1 (3.4-5.1) mmol/L Chloride 109 H (98-107) mmol/L Carbon Dioxide 22 (22-32) mmol/L BUN 13 (7-17) mg/dL Creatinine 0.67 (0.52-1.04) mg/dL Estimated GFR > 60 (>60) mL/min BUN/Creatinine Ratio 19.4 (6-22) Glucose 97 (70-100) mg/dL Calcium 9.6 (8.4-10.2) mg/dL Total Bilirubin 1.5 H (0.2-1.3) mg/dL AST 25 (14-36) IU/L ALT 17 (<35) IU/L Alkaline Phosphatase 62 (38-126) U/L Total Creatine Kinase 61 (30-135) U/L Total Protein 7.9 (6.3-8.2) g/dL Albumin 4.7 (3.5-5.0) g/dL Globulin 3.2 (1.7-4.1) g/dL Albumin/Globulin Ratio 1.5 (1.0-2.8) Urine RBC 0-1/hpf (0-5/HPF) Urine WBC 1-5/hpf (0-5/HPF) Ur Squamous Epith Cells 1-5 /hpf (0-5/HPF) Urine Bacteria None seen (None) Ur Culture Indicated? Specimen cultured Vol Urine Centrifuged 10ml (spun) Point of Care Testing Test Results Negative Urine Dip Bedside Urine Glucose Negative Bedside Urine Bilirubin - Negative Bedside Urine Ketone - Negative Urine Specific Butler 1.000 Bedside Urine Occult Blood +++ Bedside Urine pH 7.5 Bedside Urine Protein - Negative Bedside Urine Urobilinogen - Negative Bedside Urine Nitrite - Negative Bedside Urine Leukocytes - Negative Esterase Imaging Data Renal US: Radiologist's Impression: PROCEDURE: US RENAL COMPLETE INDICATIONS: L flank pain; hx stones TECHNIQUE: Real-time scanning was performed of the kidneys and bladder, with image documentation. COMPARISON: [facility], US, US RENAL COMPLETE, 05/04/2023, 11:24. FINDINGS: Kidneys: Kidneys are normal in size. Right kidney measures 11 cm long; left kidney measures 11.8 cm long. Right renal cortical thickness is 1.4 cm; left renal cortical thickness is 1.7 cm. Moderate to severe right-sided hydronephrosis is seen with 1 cm stone seen within right proximal ureter. 7.4 mm nonobstructing stone is seen in lower pole left kidney. No left-sided hydronephrosis. No suspicious solid mass lesions. Bladder: Pre-void bladder volume is 90 mL. Post-void residual is 0 mL. Pre- void images demonstrate no intraluminal masses or stones. On pre-void images, no ureteral jets are noted with color Doppler interrogation. (Of note, ureteral jets may not be detectable in up to 25% of cases due to insufficient differences in specific gravity between ureteral and bladder urine). Miscellaneous: No free pelvic fluid. IMPRESSION: 1. 1 cm stone in proximal right ureter with moderate to severe right-sided hydronephrosis. Nonobstructing stone also seen in left kidney . No left-sided hydronephrosis. No solid appearing renal lesion. 2. Normal appearing urinary bladder. XR KUB: Radiologist's Impression: PROCEDURE: XR KUB INDICATIONS: hematuria; l flank discomfort TECHNIQUE: One view of the abdomen acquired. COMPARISON: None. FINDINGS: Surgical changes and devices: None. Bowel: Bowel gas pattern is nonobstructive. No gross pneumoperitoneum. Fecal stasis throughout the colon. Soft tissues: 4 mm calcification is seen in the region of left renal fossa. Visualized solid organ contours appear normal in size. Bones: No suspicious bony lesions. IMPRESSION: Suggestion of left renal stone. No bowel obstruction or gross free air. Moderate constipation. MDM Narrative Medical decision making narrative: 24-year-old female with a past medical history of kidney stones, pelvic congestion syndrome, GERD who presents to the emergency department for brown urine since yesterday. Differential diagnosis includes but is not limited to hematuria, nephrolithiasis, ureterolithiasis, glomerular nephritis, Buerger's disease, IgA nephropathy, UTI, pyelonephritis, pelvic congestion syndrome, rhabdomyolysis etc. On exam the patient is in no acute distress, nontoxic appearing, vital signs and normal limits. Abdomen is soft and nontender, she has in no significant pain at this time. POC UA shows blood however gross color is within normal limits. We will proceed with CBC, CMP, CK, KUB x-ray and renal ultrasound for further evaluation we will treat with 1 L IV fluids. Labs reveal normal WBC count 4.5, hemoglobin 13.6, hematocrit 39.2. Normal platelets 210. Normal renal function BUN 13 creatinine 0.67. Total bilirubin 1.5. Urine microscopic reveals 0-1 RBCs, 1-5 WBCs, 1-5 squamous epithelial cells. Specimen was cultured. Renal ultrasound reveals a 1 cm stone in the proximal right ureter with moderate to severe right-sided hydronephrosis. Nonobstructing stone also seen in the left kidney. No left-sided hydronephrosis. No solid appearing renal lesion, normal-appearing urinary bladder. Urology on-call was consulted, discussed case with Dr. Mccormick around 12:40pm. At this time he recommends patient follow up with him on Thursday in clinic, prescribe Flomax and oxycodone in addition to ibuprofen Tylenol for pain. States that patient is only candidate for emergent intervention if they have bilateral obstructions, solitary kidney, infection, poor pain control, or intractable nausea vomiting and patient does not meet any of these 5 criteria at this time. Discussed workup with the patient extensively. Provided her with copies of imaging. She is feeling very anxious about the large stone however she has not experiencing any right-sided pain at this time, no vomiting, no infection, she is agreeable to outpatient management. Prescriptions for Flomax, oxycodone, Toradol, Zofran sent her pharmacy of choice. She was given 1st dose of IV Toradol in the emergency department. Very strict ED return precautions were discussed. She verbalized understanding of all information and is agreeable with the plan. She is stable for discharge home. <Neema Rivero MD - Last Filed: 06/12/24 16:02> Lab Data Labs: Lab Results 06/12/24 06/12/24 Range/Units 11:15 11:37 WBC 4.5 (4.5-11.0) X10^3/uL RBC 4.47 (4.0-5.2) X10^6/uL Hgb 13.6 (12.0-16.0) g/dL Hct 39.2 (36-46) % MCV 87.7 (80-100) fL MCH 30.5 (26-34) PG MCHC 34.8 (30-36) % RDW 12.9 (11.6-14.8) % Plt Count 210 (150-400) X10^3/uL Neut % (Auto) 53.1 (50-75) % Lymph % (Auto) 38.2 (25-40) % [place] % (Auto) 6.7 (3-14) % Eos % (Auto) 1.6 L (2-4) % Baso % (Auto) 0.4 (0-2) % Neut # (Auto) 2400 (0459-5536) /uL Lymph # (Auto) 1700 (7805-7598) /uL [place] # (Auto) 300 (0-900) /uL Eos # (Auto) 100 (0-450) /uL Baso # (Auto) 0 (0-100) /uL Sodium 140 (137-145) mmol/L Potassium 4.1 (3.4-5.1) mmol/L Chloride 109 H (98-107) mmol/L Carbon Dioxide 22 (22-32) mmol/L BUN 13 (7-17) mg/dL Creatinine 0.67 (0.52-1.04) mg/dL Estimated GFR > 60 (>60) mL/min BUN/Creatinine Ratio 19.4 (6-22) Glucose 97 (70-100) mg/dL Calcium 9.6 (8.4-10.2) mg/dL Total Bilirubin 1.5 H (0.2-1.3) mg/dL AST 25 (14-36) IU/L ALT 17 (<35) IU/L Alkaline Phosphatase 62 (38-126) U/L Total Creatine Kinase 61 (30-135) U/L Total Protein 7.9 (6.3-8.2) g/dL Albumin 4.7 (3.5-5.0) g/dL Globulin 3.2 (1.7-4.1) g/dL Albumin/Globulin Ratio 1.5 (1.0-2.8) Urine RBC 0-1/hpf (0-5/HPF) Urine WBC 1-5/hpf (0-5/HPF) Ur Squamous Epith Cells 1-5 /hpf (0-5/HPF) Urine Bacteria None seen (None) Ur Culture Indicated? Specimen cultured Vol Urine Centrifuged 10ml (spun) Point of Care Testing Test Results Negative Urine Dip Bedside Urine Glucose Negative Bedside Urine Bilirubin - Negative Bedside Urine Ketone - Negative Urine Specific Butler 1.000 Bedside Urine Occult Blood +++ Bedside Urine pH 7.5 Bedside Urine Protein - Negative Bedside Urine Urobilinogen - Negative Bedside Urine Nitrite - Negative Bedside Urine Leukocytes - Negative Esterase Discharge Plan Departure Patient Disposition: Home Clinical Impression: Calculus of proximal right ureter, Left flank pain Hematuria Qualifiers: Hematuria type: unspecified type Qualified Code(s): R31.9 - Hematuria, unspecified Instructions: DI for Kidney Stones Activity Restrictions/Additional Instructions: Dear Ms. Christian, Thank you for coming to the emergency department. Today you were evaluated for brown urine. Your workup revealed a right-sided kidney stone and blood in your urine. There are no signs of infection at this time in your kidney function is normal. I consulted our urologist Dr. Mccormick who would like to see you in his clinic on Thursday. Please call the office at [phone] to schedule an appointment. If you have any concerns you may also call the office sooner for an appointment before then if possible. Use the prescribed pain and nausea medicine as needed. You have been prescribed a short course of narcotic medications. These are potentially dangerous and addictive medications that should be used carefully. While on these medications you cannot drive or operate heavy machinery. Additionally, you cannot sign legal documents or perform any duties such as this. Many people get constipated on narcotic medications so it would be advisable to discuss stool softeners with the pharmacist when you pick up and delivery driver your prescription. Please understand that we cannot provide further refills of narcotics or controlled substances through the ED and your pain management will need to be through your Primary Care Provider Please follow up with your primary care doctor within the next 2-3 days for ER follow-up. (If you do not have a PCP you can call [phone]. ?to schedule an appointment with an [facility] Primary Care Provider) IF YOU DEVELOP ANY NEW OR WORSENING SYMPTOMS, RETURN TO THE ER! Please read the attached instructions, they highlight more specific treatments and interventions for you at home. Thank you for letting me participate in your care, Seda Weiss PA-C Prescriptions: New ketorolac 10 mg tablet 10 mg PO Q8H PRN (Reason: pain) Qty: 14 0RF Rx Instructions: maximum total duration of 5 days from all oral, intranasal, or parenteral formulations oxycodone 5 mg tablet 5 mg PO Q6H PRN (Reason: pain) Qty: 10 0RF ondansetron 4 mg tablet,disintegrating 4 mg PO Q8H PRN (Reason: nausea and vomiting) Qty: 14 0RF tamsulosin [Flomax] 0.4 mg capsule 0.4 mg PO DAILY Qty: 20 0RF No Action loratadine 10 mg tablet 10 mg PO DAILY omeprazole 20 mg capsule,delayed release(DR/EC) 20 mg PO DAILY Referrals: Erik Mccormick DO [Physician] - (right 1cm proximal ureteral stone w/ hydro ) Provider,Myles JEAN [Primary Care Provider] - Stand Alone Forms: Patient Portal/API/Survey ED Sign-out <Neema Rivero MD - Last Filed: 06/12/24 16:02> Cosign ED Attending Esper[place] Attestation: I was immediately available in the department for consultation throughout this patient's visit. Neema Rivero MD
[2024-06-12 11:28] LABS: Urine Volume 10mL (spun)
--- NOTE | 2024-06-12 11:30 | DI.RAD.S_ITS ---
PROCEDURE: XR KUB INDICATIONS: hematuria; l flank discomfort TECHNIQUE: One view of the abdomen acquired. COMPARISON: None. FINDINGS: Surgical changes and devices: None. Bowel: Bowel gas pattern is nonobstructive. No gross pneumoperitoneum. Fecal stasis throughout the colon. Soft tissues: 4 mm calcification is seen in the region of left renal fossa. Visualized solid organ contours appear normal in size. Bones: No suspicious bony lesions. IMPRESSION: Suggestion of left renal stone. No bowel obstruction or gross free air. Moderate constipation. Dictated by: Russ Raygoza M.D. on 06/12/2024 at 12:12 Approved by: Russ Raygoza M.D. on 06/12/2024 at 12:13
--- NOTE | 2024-06-12 11:30 | DI.US.S_ITS ---
PROCEDURE: US RENAL COMPLETE INDICATIONS: L flank pain; hx stones TECHNIQUE: Real-time scanning was performed of the kidneys and bladder, with image documentation. COMPARISON: [facility], , RENAL COMPLETE, 05/04/2023, 11:24. FINDINGS: Kidneys: Kidneys are normal in size. Right kidney measures 11 cm long; left kidney measures 11.8 cm long. Right renal cortical thickness is 1.4 cm; left renal cortical thickness is 1.7 cm. Moderate to severe right-sided hydronephrosis is seen with 1 cm stone seen within right proximal ureter. 7.4 mm nonobstructing stone is seen in lower pole left kidney. No left-sided hydronephrosis. No suspicious solid mass lesions. Bladder: Pre-void bladder volume is 90 mL. Post-void residual is 0 mL. Pre-void images demonstrate no intraluminal masses or stones. On pre-void images, no ureteral jets are noted with color Doppler interrogation. (Of note, ureteral jets may not be detectable in up to 25% of cases due to insufficient differences in specific gravity between ureteral and bladder urine). Miscellaneous: No free pelvic fluid. IMPRESSION: 1. 1 cm stone in proximal right ureter with moderate to severe right-sided hydronephrosis. Nonobstructing stone also seen in left kidney . No left-sided hydronephrosis. No solid appearing renal lesion. 2. Normal appearing urinary bladder. Dictated by: Russ Raygoza M.D. on 06/12/2024 at 12:13 Approved by: Russ Raygoza M.D. on 06/12/2024 at 12:15
[2024-06-12 11:33] LABS: Bacteria Urine None Seen; Culture Indicated Urine Specimen Cultured; RBC Urine 0-1/HPF (0-5/HPF); Squamous Epithelial Cell Urine 1-5 /HPF (0-5/HPF); WBC Urine 1-5/HPF (0-5/HPF)
[2024-06-12 11:45] LABS: Add Manual Diff / Slide Review NO; Basophils Absolute Auto 0 /uL (0-100); Basophils Percent Auto 0.4 % (0-2); Eosinophils Absolute Auto 100 /uL (0-450); Eosinophils Percent Auto 1.6 % (2-4); Hematocrit 39.2 % (36-46); Hemoglobin 13.6 g/dL (12.0-16.0); Lymphocytes Absolute Auto 1700 /uL (1100-4500); Lymphocytes Percent Auto 38.2 % (25-40); Mean Corpuscular HGB Conc 34.8 % (30-36); Mean Corpuscular Hemoglobin 30.5 PG (26-34); Mean Corpuscular Volume 87.7 fL (80-100); Monocytes Absolute Auto 300 /uL (0-900); Monocytes Percent Auto 6.7 % (3-14); Neutrophils Absolute Auto 2400 /uL (1500-7000); Neutrophils Percent Auto 53.1 % (50-75); Platelet Count 210 X10^3/uL (150-400); Red Blood Cell Count 4.47 X10^6/uL (4.0-5.2); Red Cell Distribution Width 12.9 % (11.6-14.8); White Blood Cell Count 4.5 X10^3/uL (4.5-11.0)
[2024-06-12 11:55] LABS: Alanine Aminotransferase 17 IU/L (<35); Albumin 4.7 g/dL (3.5-5.0); Albumin Globulin Ratio 1.5 (1.0-2.8); Alkaline Phosphatase 62 U/L (38-126); Aspartate Aminotransferase 25 IU/L (14-36); BUN Creatinine Ratio 19.4 (6-22); Bilirubin Total 1.5 mg/dL (0.2-1.3); Blood Urea Nitrogen 13 mg/dL (7-17); Calcium 9.6 mg/dL (8.4-10.2); Carbon Dioxide 22 mmol/L (22-32); Chloride 109 mmol/L (98-107); Creatine Kinase 61 U/L (30-135); Estimated Glomerular Filt Rate > 60 mL/min (>60); Globulin 3.2 g/dL (1.7-4.1); Glucose 97 mg/dL (70-100); HEMOLYSIS 22 (0-50); Potassium 4.1 mmol/L (3.4-5.1); Sodium 140 mmol/L (137-145); Total Protein 7.9 g/dL (6.3-8.2)
[2024-06-12] MEDS: SODIUM CHLORIDE 0.9% 1,000 ML 1000 ML IV (12:03)
[2024-06-12] MEDS: KETOROLAC 30 MG/ML VIAL 15 MG IV (12:50)
[2024-06-12 12:55] VITALS: BP 113/78; PULSE 78; RESP 18; O2SAT 99
--- NOTE | 2024-06-13 14:49 | PC.NURSE ---
Pt unable to picking prescriptions from [facility] due to insurance per patient. Pt had previously called to request prescriptions be sent to [facility] in [place]. [facility] had not received Rx's. I talked to Consuelo Yoon and she okayed calling in prescriptions to [facility] in [place]. I did call [facility] and talked with Jessica, pharmacy graduate intern, who is going to have pharmacist cancel the prescritions at [facility]. I called [facility] and talked to Marlin, Pharmacist and gave verbal orders for Tamsulosin, ketorolac, zofran as prescribed. Consuelo Yoon to escript the oxycodone that was previously prescribed. I talked to pt on the phone again to update her.
== END 2024-06-12 13:21 | disposition home or self-care (01) ==
PROVIDERS: Emergency Provider Physician Assistant
DX: N13.2 Hydronephrosis with renal and ureteral calculous obstruction (principal); R31.9 Hematuria, unspecified; Z87.442 Personal history of urinary calculi
CPT/HCPCS: 36415; 74018; 76770; 80053; 81003; 81015; 81025; 82550; 85025; 87086; 96361; 96374; 99284; J1885

== ENCOUNTER 2024-09-06 18:08 | Emergency (ER) | payer OTHER, SELFPAY ==
[2024-09-06] VITALS (10 sets, daily range): BP systolic 106–119; BP diastolic 62–73; PULSE 78–107; RESP 16; TEMP 36.8; O2SAT 95–100; BMI 23.6
--- NOTE | 2024-09-06 18:56 | ED.BACK ---
HPI - Back Pain/Injury General Chief Complaint: Back Pain/Injury Stated Complaint: Kidney stone Time Seen by Provider: 09/06/24 18:49 History of Present Illness HPI Narrative: 24-year-old female with history of kidney stones since childhood, complains of 3 days duration left flank pain, left anterior abdominal pain, seen yesterday [facility] where CT scan showed right-sided 8 mm diameter stone, discharged 0200 with home pack oxycodone, has been able to take her oxycodone doses, has nausea but no vomiting, but increasing pain despite analgesic medicines. No fevers or chills. No weakness. She does not take blood thinner medications. Related Data Home Medications ?Medication ?Instructions ?Recorded ?Confirmed loratadine 10 mg tablet 10 mg PO DAILY 02/14/24 02/14/24 omeprazole 20 mg capsule,delayed 20 mg PO DAILY 02/14/24 02/14/24 release Previous Rx's ?Medication ?Instructions ?Recorded ketorolac 10 mg tablet 10 mg PO Q8H PRN pain #14 tabs 06/12/24 ketorolac 10 mg tablet 10 mg PO Q8H PRN pain #14 tabs 06/12/24 ondansetron 4 mg disintegrating 4 mg PO Q8H PRN nausea and 06/12/24 tablet vomiting #14 tabs ondansetron 4 mg disintegrating 4 mg PO Q8H PRN nausea and 06/12/24 tablet vomiting #14 tabs oxycodone 5 mg tablet 5 mg PO Q6H PRN pain #10 tabs 06/12/24 oxycodone 5 mg tablet 5 mg PO Q6H PRN pain #10 tabs 06/12/24 tamsulosin 0.4 mg capsule (Flomax) 0.4 mg PO DAILY #20 caps 06/12/24 tamsulosin 0.4 mg capsule (Flomax) 0.4 mg PO DAILY #20 caps 06/12/24 oxycodone 5 mg tablet 5 mg PO Q6H PRN pain #10 tabs 06/13/24 cefdinir 300 mg capsule 300 mg PO BID 10 days #20 caps 09/06/24 cefdinir 300 mg capsule 300 mg PO BID 10 days #20 caps 09/06/24 oxycodone-acetaminophen 7.5 mg-325 1 tab PO Q6H PRN pain #14 tabs 09/06/24 mg tablet oxycodone-acetaminophen 7.5 mg-325 1 tab PO Q6H PRN pain #14 tabs 25 mg tablet Allergies Allergy/AdvReac Type Severity Reaction Status Date / Time No Known Drug Allergies Allergy Verified 09/06/24 18:22 Patient History Medical History Depression (~2016) ADHD (~2009) Dyspareunia White coat syndrome with high blood pressure but without hypertension Suicidal ideation Environmental allergies Spinal headache GERD (gastroesophageal reflux disease) Anxiety (~2016) OCD (obsessive compulsive disorder) (~2016) Surgical History Anesthesia H/O lithotripsy (~04/2018) Family History Mother Migraine Brother Environmental allergies Asthma Grandfather Heart disease Heart attack Pacemaker Congenital anomaly of kidney Grandfather Diabetes mellitus Lung disease Grandmother Hypothyroidism OCD (obsessive compulsive disorder) B12 deficiency Neuropathy Family/Other Crohn's disease Family/Other Eclampsia hemorrhage Social History marital status: number of children: 1 household members: spouse and children lives independently: Yes caregiver/support person: Yes housing: apartment pets and animals: Yes (2 cats, manages litter box) education level: college (some college) occupational status: unemployed current occupational exposures/hazards: No yazmin/alevism: Taoism special yazmin needs: No travel history: recent (cross-country domestic move) seatbelt use: always water heater temp set < 120 deg: Yes working smoke detector in home: Yes fire extinguisher in home: Yes carbon monox detector in home: Yes firearms in home: No do you feel safe at home: Yes second hand exposure: No alcohol intake: former (very rarely when not ) substance use type: does not use and marijuana (as a teenager, never as an adult) during the past year weight has: other (pt's other child was only ~1 year old when she got ) daily servings fruits/ve-4 caffeine: Yes (rarely) Type(s) of exercise: none alcohol intake frequency: holidays/special occasions only Exam Narrative Exam Narrative: GENERAL: Well-developed patient, in moderate abdominal distress. HEAD: Atraumatic. Normocephalic. EYES: Pupils equal round and reactive. Extraocular motions intact. No scleral icterus. No injection or drainage. ENT: Nose without bleeding, purulent drainage. Throat without erythema, tonsillar hypertrophy or exudate. Airway patent. NECK: Trachea midline. Non tender CARDIOVASCULAR: Regular rate and rhythm without murmurs, gallops, or rubs. RESPIRATORY: Clear to auscultation. Breath sounds equal bilaterally. No wheezes, rales, or rhonchi. GASTROINTESTINAL: Abdomen soft, non-tender, nondistended. EXTREMITIES: No edema or joint tenderness. BACK: Nontender without deformity or crepitance. No flank tenderness. NEURO: AOx3. Motor functions grossly nonfocal SKIN: No rash or erythema of visible areas Initial Vital Signs Initial Vital Signs: Vital Signs Blood Pressure 110/62 09/06/24 18:11 Course Orders Ordered: Discontinued Medications Hydromorphone HCl (Hydromorphone 1 Mg Inj) 1 mg IV NOW ONE Stop: 09/06/24 19:26 Last Admin: 09/06/24 19:39 Dose: 1 mg Documented By: IVONNE Sodium Chloride (Normal Saline 0.9%) 1,000 mls @ 1,000 mls/hr IV BOLUS ONE Stop: 09/06/24 20:25 Last Infusion: 09/06/24 20:34 Dose: Infused Documented By: Admin: 09/06/24 19:40 Dose: 1,000 mls/hr Documented By: IVONNE Ceftriaxone Sodium 1,000 mg/ (Sodium Chloride) 100 mls @ 200 mls/hr IV NOW ONE Stop: 09/06/24 21:03 Last Infusion: 09/06/24 21:55 Dose: Infused Documented By: Admin: 09/06/24 21:23 Dose: 200 mls/hr Documented By: CHAD Ketorolac Tromethamine (Ketorolac 30 Mg/Ml Vial) 15 mg IV NOW ONE Stop: 09/06/24 21:04 Last Admin: 09/06/24 21:22 Dose: 15 mg Documented By: CHAD Ondansetron HCl (Ondansetron 4 Mg/2 Ml Inj) 4 mg IV NOW ONE Stop: 09/06/24 19:26 Last Admin: 09/06/24 19:40 Dose: 4 mg Documented By: [facility] Vital Signs Vital signs: Vital Signs - 8 hr 09/06/24 20:30 09/06/24 20:30 09/06/24 21:00 Pulse Rate 105 H 107 H Blood Pressure 119/73 Pulse Oximetry 95 99 09/06/24 21:00 09/06/24 21:30 09/06/24 21:30 Pulse Rate 78 Blood Pressure 116/70 106/67 Pulse Oximetry 99 MDM - Back Pain/Injury Lab Data Attestation: I reviewed the patient's lab results. Lab results narrative: White blood cell count 7900, hemoglobin 14.1, platelets adequate. Glucose 90. BUN 8 with creatinine 0.75 normal renal function. Sodium 140, potassium 3.7, serum CO2 23 normal. T bili 2.9, other liver functions unremarkable. 09/06/24 18:18 09/06/24 18:18 Labs: Lab Results 09/06/24 Range/Units 18:18 WBC 7.9 (4.5-11.0) X10^3/uL RBC 4.54 (4.0-5.2) X10^6/uL Hgb 14.1 (12.0-16.0) g/dL Hct 39.7 (36-46) % MCV 87.4 (80-100) fL MCH 31.0 (26-34) PG MCHC 35.5 (30-36) % RDW 13.5 (11.6-14.8) % Plt Count 227 (150-400) X10^3/uL Neut % (Auto) 68.9 (50-75) % Lymph % (Auto) 23.9 L (25-40) % [place] % (Auto) 6.8 (3-14) % Eos % (Auto) 0.3 L (2-4) % Baso % (Auto) 0.1 (0-2) % Neut # (Auto) 5400 (1526-0811) /uL Lymph # (Auto) 1900 (2943-9851) /uL [place] # (Auto) 500 (0-900) /uL Eos # (Auto) 0 (0-450) /uL Baso # (Auto) 0 (0-100) /uL Sodium 140 (137-145) mmol/L Potassium 3.7 (3.4-5.1) mmol/L Chloride 106 (98-107) mmol/L Carbon Dioxide 23 (22-32) mmol/L BUN 8 (7-17) mg/dL Creatinine 0.75 (0.52-1.04) mg/dL Estimated GFR > 60 (>60) mL/min BUN/Creatinine Ratio 10.7 (6-22) Glucose 90 (70-99) mg/dL Calcium 9.8 (8.4-10.2) mg/dL Total Bilirubin 2.9 H (0.2-1.3) mg/dL AST 24 (14-36) IU/L ALT 15 (<35) IU/L Alkaline Phosphatase 74 (38-126) U/L Total Protein 7.9 (6.3-8.2) g/dL Albumin 5.0 (3.5-5.0) g/dL Globulin 2.9 (1.7-4.1) g/dL Albumin/Globulin Ratio 1.7 (1.0-2.8) HCG, Quant < 2.39 mIU/mL Urine Color Yellow Urine Appearance Clear Urine pH 6.0 (4.5-8.0) Ur Specific [place] <=1.005 (1.000-1.035) Urine Protein Negative (Negative) Urine Glucose (UA) Negative (Negative) g/dL Urine Ketones 2+ H (NEGATIVE) Urine Occult Blood 3+ H (Negative) Urine Nitrate Negative (Negative) Urine Bilirubin Negative (NEGATIVE) Urine Urobilinogen 0.2 (0.2) E.U./dL Ur Leukocyte Esterase 1+ H (NEGATIVE) Urine RBC 1-5/hpf (0-5/HPF) Urine WBC 1-5/hpf (0-5/HPF) Ur Squamous Epith Cells 1-5 /hpf (0-5/HPF) Urine Bacteria Moderate (10-30) H (None) Ur Culture Indicated? Specimen cultured Vol Urine Centrifuged 10ml (spun) Point of Care Testing Test Results Negative Imaging Data KUB single view abdominal x-ray: Radiologist's Impression: [address] [address] XRay Report Signed Patient: Sue Christian MR#: [id number] : 2000 Acct:[id number] Age/Sex: 24 / F Date of Service: 09/06/24 Loc: ED Accession Number: [id number] Procedure: XR abdomen 1V Ordering Provider: Robin Guerra MD PROCEDURE: XR ABDOMEN 1V INDICATIONS: pain, CT [facility] 8mm stone yesterday TECHNIQUE: One view of the abdomen acquired. COMPARISON: [facility], CT, CT KUB, 09/05/2024, 23:31. FINDINGS: Surgical changes and devices: None. Bowel: Bowel gas pattern is nonobstructive. Soft tissues: No suspicious abdominal calcifications. Visualized solid organ contours appear normal in size. There is an 8 mm oval calcific density projecting over the right side of the lumbar spine at the level L2 consistent with previously described proximal right ureteral stone. This is relatively stable in positioning. No other suspicious soft tissue calcifications. Bones: No suspicious bony lesions. IMPRESSION: 8 mm oval calculus projecting over the right side of the lumbar spine compatible with previously described proximal right ureteral stone. This has not demonstrated significant transit. Dictated by: Rojas Bryant M.D. on 09/06/2024 at 19:37 Approved by: Rojas Bryant M.D. 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 Nausea but able to take her medications. Having increasing pain. Afebrile on triage. We will attempt KUB to see if stone can be seen on that study, requested report from [facility]. Keep NPO. Records review outside records. CT abdomen and pelvis. Impression: ?8 mm obstructing stone in the right proximal ureter causing mild hydronephrosis. Other small bilateral nonobstructing intrarenal calculi.? Copy of CT report now into chart. IV Dilaudid/Zofran. 2100, case discussed with Urology Dr. Mccormick, bacteriuria noted without inflammatory cells, can cover with IV ceftriaxone, no fever, normotensive, advises close follow up with him if pain can be controlled, for definitive stone removal procedure. IV Toradol added. Pain further controlled. We will send prescription for higher potency oxycodone 7.5 mg strength to her [facility] pharmacy. Cefdinir prescription sent to her [facility] pharmacy. Close follow up with local urology Dr. Mccormick, to be contacted, for likely definitive stone removal procedure. Discharge Plan Departure Patient Disposition: Home Clinical Impression: Right ureteral stone, Bacteriuria Activity Restrictions/Additional Instructions: History of recurrent kidney stones, prior lithotripsy procedures despite young age, most recently with right-sided large 8 mm kidney stone proximal ureter diagnosed by CT scanning at [facility] yesterday, having pain despite taking oxycodone 5 mg strength medications. No fever on triage. Urine testing showed bacteria but no inflammatory cells, urine culture requested, IV ceftriaxone for possible infection. Abdominal x-ray single view was able to show right-sided kidney stone, which hopefully can be continued to be tracked by plain x-ray if needed. We would not repeat CT scanning tonight. Case was discussed with on-call Urology Dr. Nesbitt, who agreed with starting antibiotics, we will add oral antibiotics, he would like to see you in close follow up for definitive stone removal procedure surgery, to be scheduled. Contact his office if you have not heard from that office by early afternoon tomorrow. We sent prescription for higher potency strength oxycodone to your pharmacy. Continue taking ketorolac as needed. Follow up with Urology for stone removal surgery. Return earlier to this/nearest emergency department for any change worsening symptoms or any concerns prior. Prescriptions: New cefdinir 300 mg capsule 300 mg PO BID 10 Days Qty: 20 0RF cefdinir 300 mg capsule 300 mg PO BID 10 Days Qty: 20 0RF oxycodone-acetaminophen 7.5-325 mg tablet 1 tab PO Q6H PRN (Reason: pain) Qty: 14 0RF oxycodone-acetaminophen 7.5-325 mg tablet 1 tab PO Q6H PRN (Reason: pain) Qty: 14 0RF No Action ketorolac 10 mg tablet 10 mg PO Q8H PRN (Reason: pain) Qty: 14 0RF Rx Instructions: maximum total duration of 5 days from all oral, intranasal, or parenteral formulations oxycodone 5 mg tablet 5 mg PO Q6H PRN (Reason: pain) Qty: 10 0RF ondansetron 4 mg tablet,disintegrating 4 mg PO Q8H PRN (Reason: nausea and vomiting) Qty: 14 0RF tamsulosin [Flomax] 0.4 mg capsule 0.4 mg PO DAILY Qty: 20 0RF tamsulosin [Flomax] 0.4 mg capsule 0.4 mg PO DAILY Qty: 20 0RF oxycodone 5 mg tablet 5 mg PO Q6H PRN (Reason: pain) Qty: 10 0RF ketorolac 10 mg tablet 10 mg PO Q8H PRN (Reason: pain) Qty: 14 0RF Rx Instructions: maximum total duration of 5 days from all oral, intranasal, or parenteral formulations ondansetron 4 mg tablet,disintegrating 4 mg PO Q8H PRN (Reason: nausea and vomiting) Qty: 14 0RF oxycodone 5 mg tablet 5 mg PO Q6H PRN (Reason: pain) Qty: 10 0RF loratadine 10 mg tablet 10 mg PO DAILY omeprazole 20 mg capsule,delayed release(DR/EC) 20 mg PO DAILY Referrals: Erik Mccormick DO [Physician, Urology] Provider,Myles JEAN [Primary Care Provider, Family Practice] Stand Alone Forms: Patient Portal/API
[2024-09-06 19:04] LABS: Add Manual Diff / Slide Review NO; Basophils Absolute Auto 0 /uL (0-100); Basophils Percent Auto 0.1 % (0-2); Eosinophils Absolute Auto 0 /uL (0-450); Eosinophils Percent Auto 0.3 % (2-4); Hematocrit 39.7 % (36-46); Hemoglobin 14.1 g/dL (12.0-16.0); Lymphocytes Absolute Auto 1900 /uL (1100-4500); Lymphocytes Percent Auto 23.9 % (25-40); Mean Corpuscular HGB Conc 35.5 % (30-36); Mean Corpuscular Volume 87.4 fL (80-100); Monocytes Absolute Auto 500 /uL (0-900); Monocytes Percent Auto 6.8 % (3-14); Neutrophils Absolute Auto 5400 /uL (1500-7000); Neutrophils Percent Auto 68.9 % (50-75); Platelet Count 227 X10^3/uL (150-400); Red Blood Cell Count 4.54 X10^6/uL (4.0-5.2); Red Cell Distribution Width 13.5 % (11.6-14.8); White Blood Cell Count 7.9 X10^3/uL (4.5-11.0)
[2024-09-06 19:10] LABS: Alanine Aminotransferase 15 IU/L (<35); Albumin Globulin Ratio 1.7 (1.0-2.8); Alkaline Phosphatase 74 U/L (38-126); Aspartate Aminotransferase 24 IU/L (14-36); BUN Creatinine Ratio 10.7 (6-22); Bilirubin Total 2.9 mg/dL (0.2-1.3); Blood Urea Nitrogen 8 mg/dL (7-17); Calcium 9.8 mg/dL (8.4-10.2); Carbon Dioxide 23 mmol/L (22-32); Chloride 106 mmol/L (98-107); Estimated Glomerular Filt Rate > 60 mL/min (>60); Globulin 2.9 g/dL (1.7-4.1); Glucose 90 mg/dL (70-99); HEMOLYSIS < 15 (0-50); Potassium 3.7 mmol/L (3.4-5.1); Sodium 140 mmol/L (137-145); Total Protein 7.9 g/dL (6.3-8.2)
[2024-09-06] MEDS: HYDROMORPHONE 1 MG INJ IV (19:39)
[2024-09-06] MEDS: ONDANSETRON 4 MG/2 ML INJ IV (19:40)
[2024-09-06] MEDS: SODIUM CHLORIDE 0.9% 1,000 ML 1000 ML IV (19:40)
[2024-09-06 20:06] LABS: HCG Quantitative /Beta subunit < 2.39 mIU/mL
[2024-09-06 20:22] LABS: Appearance Urine UA CLEAR; Bilirubin Urine UA NEGATIVE (NEGATIVE); Color Urine UA YELLOW; Glucose Urine UA NEGATIVE (Negative); Ketones Urine UA 2+ (NEGATIVE); Leukocyte Esterase Urine UA 1+ (NEGATIVE); Nitrite Urine UA NEGATIVE (Negative); Occult Blood Urine UA 3+ (Negative); Protein Urine UA NEGATIVE (Negative); Specific Gravity Urine UA <=1.005 (1.000-1.035); Urobilinogen Urine UA 0.2 E.U./dL (0.2)
[2024-09-06 20:34] LABS: Bacteria Urine Moderate (10-30); Culture Indicated Urine Specimen Cultured; RBC Urine 1-5/HPF (0-5/HPF); Squamous Epithelial Cell Urine 1-5 /HPF (0-5/HPF); Urine Volume 10mL (spun); WBC Urine 1-5/HPF (0-5/HPF)
[2024-09-06] MEDS: KETOROLAC 30 MG/ML VIAL 15 MG IV (21:22)
[2024-09-06] MEDS: cefTRIAXone 1,000 MG in SODIUM CHLORIDE 0.9% 100 ML 200 MG IV (21:23)
== END 2024-09-06 22:03 | disposition home or self-care (01) ==
PROVIDERS: Emergency Provider Emergency Medicine
DX: N20.1 Calculus of ureter (principal); R82.71 Bacteriuria; Z87.442 Personal history of urinary calculi
CPT/HCPCS: 74018; 80053; 81001; 81025; 84702; 85025; 87086; 96361; 96365; 96375; 99283; 99284; J0696; J1171; J1885; J2405

== ENCOUNTER 2024-10-09 09:08 | Emergency (ER) | payer OTHER, SELFPAY ==
[2024-10-09 09:22] VITALS: BP 119/81; PULSE 91; RESP 16; TEMP 36.6; O2SAT 99; BMI 23.6
--- NOTE | 2024-10-09 09:46 | DI.CT.S_ITS ---
PROCEDURE: CT ABDOMEN PELVIS WO/W CON INDICATIONS: abd pain TECHNIQUE: Optional 5 mm thick noncontrast images acquired from the diaphragm to the symphysis pubis. After the administration of intravenous contrast, 5 mm thick images acquired from the diaphragm to the symphysis pubis after a 10-minute delay. 2 mm thick coronal and sagittal reformats were then performed of the kidneys and ureters. For radiation dose reduction, the following was used: automated exposure control, adjustment of mA and/or kV according to patient size. COMPARISON: [facility], CR, XR [facility]ROGR[facility] UROGRAPHY, 09/12/2024, 13:28. [facility], CT, CT KUB, 09/05/2024, 23:31. FINDINGS: Image quality: Diagnostic. Kidneys and Ureters: Both kidneys are normal in size. No hydronephrosis. The previously seen stone in the right proximal ureter is no longer present. Small nonobstructing kidney stones. 1 on the right and 2 on the left. No perinephric fat stranding. There is normal bilateral renal enhancement. No solid renal mass. Renal calyces appear normal in morphology when filled with contrast. Opacified portions of both ureters demonstrate normal caliber Bladder: Bladder wall thickness is normal. No calcified bladder stones. OTHER: Lower chest: Unremarkable. Liver: No solid mass. Gallbladder: No radiopaque gallstones or wall thickening. Biliary ducts: No biliary dilation. Pancreas: No ductal dilation. Spleen: Size is within normal limits. Adrenal Glands: No adrenal nodules. Stomach and Bowel: Normal colonic caliber, without significant wall thickening. Normal appendix. Peritoneum: No abnormal intraperitoneal fluid. No free air. Ventral Wall: No hernia. Abdominal Nodes: No retroperitoneal or mesenteric adenopathy by size criteria. Vessels: Aorta and inferior vena cava are normal in size. PELVIS: Pelvic Organs: Retroverted uterus. Pelvic Nodes: No enlarged lymph nodes. Miscellaneous: No inguinal hernias are seen. Bones: No aggressive osseous abnormality. IMPRESSION: 1. The previously seen stone in the right proximal ureter is no longer present. No hydronephrosis. No bladder stones. 2. Small nonobstructing kidney stones. 3. No solid renal mass. No ureteral filling defect. Dictated by: Evelio Cruz M.D. on 10/09/2024 at 9:57 Approved by: Evelio Cruz M.D. on 10/09/2024 at 10:07
[2024-10-09 09:58] LABS: Add Manual Diff / Slide Review NO; Hematocrit 38.5 % (36-46); Hemoglobin 13.6 g/dL (12.0-16.0); Lymphocytes Absolute Auto 1500 /uL (1100-4500); Mean Corpuscular HGB Conc 35.3 % (30-36); Mean Corpuscular Hemoglobin 31.3 PG (26-34); Mean Corpuscular Volume 88.6 fL (80-100); Platelet Count 235 X10^3/uL (150-400)
[2024-10-09 10:02] LABS: Alanine Aminotransferase 13 IU/L (<35); Albumin 4.9 g/dL (3.5-5.0); Albumin Globulin Ratio 1.6 (1.0-2.8); Alkaline Phosphatase 68 U/L (38-126); Blood Urea Nitrogen 11 mg/dL (7-17); Calcium 9.6 mg/dL (8.4-10.2); Carbon Dioxide 21 mmol/L (22-32); Chloride 108 mmol/L (98-107); Culture Indicated Urine Cult Not Indicated; Estimated Glomerular Filt Rate > 60 mL/min (>60); Globulin 3.0 g/dL (1.7-4.1); Glucose 89 mg/dL (70-99); HEMOLYSIS 17 (0-50); Lactate (Lactic Acid) 1.0 mmol/L (0.7-2.1); Lipase 120 U/L (23-300); Potassium 3.8 mmol/L (3.4-5.1); Sodium 140 mmol/L (137-145); Total Protein 7.9 g/dL (6.3-8.2)
--- NOTE | 2024-10-09 11:38 | DI.US.S_ITS ---
PROCEDURE: US ABDOMEN LIMITED INDICATIONS: RUQ TECHNIQUE: Real-time scanning was performed of the abdominal and retroperitoneal organs, with image documentation. COMPARISON: [facility], CT, CT ABDOMEN PELVIS WO/W CON, 10/09/2024, 9:56. FINDINGS: Liver: Measures 14 cm. Echogenicity is within normal limits. Echogenic focus measuring 2 cm in the left lobe. This is felt to represent focal fatty infiltration as seen on CT. Gallbladder: No gallstones. No wall thickening. No pericholecystic edema. Negative sonographic Graham's sign. Biliary ducts: Intrahepatic bile ducts are non-dilated. Extrahepatic bile duct caliber measures 3 mm. Normal is 6-7 mm or less in diameter, or 10 mm or less post-cholecystectomy. Pancreas: Visualized portions of the pancreas are sonographically normal. Miscellaneous: No free abdominal fluid. IMPRESSION: No acute cholecystitis. No gallstones. Dictated by: Evelio Cruz M.D. on 10/09/2024 at 12:38 Approved by: Evelio Cruz M.D. on 10/09/2024 at 12:41
[2024-10-09 12:25] VITALS: BP 114/66; PULSE 70; RESP 16; O2SAT 100
--- NOTE | 2024-10-09 14:13 | ED_ITS ---
HPI - Abdominal Pain General Chief Complaint: Abdominal Pain Stated Complaint: Recent kidney stone surgery/Pain in back and shoul Time Seen by Provider: 10/09/24 09:42 Source: patient Mode of arrival: Ambulatory History of Present Illness HPI narrative: Pleasant 24-year-old woman comes to the ER because of pain near the right upper quadrant of her abdomen/right lower chest wall. She states that the pain is worse with changing positions and with deep breathing. She denies any recent fever, chills, sweats. She denies any substernal chest pain, shortness of breath, palpitations, diaphoresis, lightheadedness. She does report a history of hyperbilirubinemia in the past for which she did end up having a HIDA scan but never had cholecystectomy and never had GI consultation and there was eventually no answer found for the reason she has hyperbilirubinemia. She denies any nausea vomiting or diarrhea hematemesis or hematochezia or melena today. She has no other concerns or complaints at this time. She also denies any abnormal vaginal discharge or bleeding and denies any irritative voiding symptoms. Notably, she did have lithotripsy of a renal stone a few weeks ago but she states the symptoms from that have completely resolved since the procedure. Related Data Home Medications ?Medication ?Instructions ?Recorded ?Confirmed loratadine 10 mg tablet 10 mg PO DAILY 02/14/2401/28 omeprazole 20 mg capsule,delayed 20 mg PO DAILY 02/14/24 release Previous Rx's ?Medication ?Instructions ?Recorded ketorolac 10 mg tablet 10 mg PO Q8H PRN pain #14 ta bs 06/12/24 ketorolac 10 mg tablet 10 mg PO Q8H PRN pain #14 ta bs 06/12/24 ondansetron 4 mg disintegrating 4 mg PO Q8H PRN nausea and 06/12/24 tablet vomiting #14 tabs ondansetron 4 mg disintegrating 4 mg PO Q8H PRN nausea and 06/12/24 tablet vomiting #14 tabs oxycodone 5 mg tablet 5 mg PO Q6H PRN pain #10 tab s 06/12/24 oxycodone 5 mg tablet 5 mg PO Q6H PRN pain #10 tab s 06/12/24 tamsulosin 0.4 mg capsule (Flomax) 0.4 mg PO DAILY #20 caps 06/12/24 tamsulosin 0.4 mg capsule (Flomax) 0.4 mg PO DAILY #20 caps 06/12/24 oxycodone 5 mg tablet 5 mg PO Q6H PRN pain #10 tab s 06/13/24 oxycodone-acetaminophen 7.5 mg-325 1 tab PO Q6H PRN pa in #14 tabs 09/06/24 mg tablet oxycodone-acetaminophen 7.5 mg-325 1 tab PO Q6H PRN pa in #14 tabs 09/06/24 mg tablet Allergies Allergy/AdvReac Type Severity Reaction Status Date / Time No Known Drug Allergies Allergy Verified 10/09/24 09:23 Patient History Medical History Depression (~2016) ADHD (~2009) Dyspareunia White coat syndrome with high blood pressure but without hypertension Suicidal ideation Environmental allergies Spinal headache GERD (gastroesophageal reflux disease) Anxiety (~2016) OCD (obsessive compulsive disorder) (~2016) Surgical History Anesthesia H/O lithotripsy (~04/2018) Family History Mother Migraine Brother Environmental allergies Asthma Grandfather Heart disease Heart attack Pacemaker Congenital anomaly of kidney Grandfather Diabetes mellitus Lung disease Grandmother Hypothyroidism OCD (obsessive compulsive disorder) B12 deficiency Neuropathy Family/Other Crohn's disease Family/Other Eclampsia hemorrhage Social History marital status: number of children: 1 household members: spouse and children lives independently: Yes caregiver/support person: Yes housing: apartment pets and animals: Yes (2 cats, manages litter box) education level: college (some college) occupational status: unemployed current occupational exposures/hazards: No 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 special yazmin needs: No travel history: recent (cross-country domestic move) seatbelt use: always water heater temp set < 120 deg: Yes working smoke detector in home: Yes fire extinguisher in home: Yes carbon monox detector in home: Yes firearms in home: No do you feel safe at home: Yes Smoking Status: Never smoker second hand exposure: No alcohol intake: former (very rarely when not ) substance use type: does not use and marijuana (as a teenager, never as an adult) during the past year weight has: other (pt's other child was only ~1 year old when she got ) daily servings fruits/ve-4 caffeine: Yes (rarely) Type(s) of exercise: none Smoking Status: Never smoker alcohol intake frequency: holidays/special occasions only Exam Initial Vital Signs Initial Vital Signs: Vital Signs Temperature 97.9 F 10/09/24 09:22 Pulse Rate 91 H 10/09/24 09:22 Respiratory Rate 16 10/09/24 09:22 Blood Pressure 119/81 10/09/24 09:22 Pulse Oximetry 99 10/09/24 09:22 Oxygen Delivery Method Room Air 10/09/24 09:22 Const General: comfortable, No acute distress and No in distress HENMT Head: normocephalic and atraumatic Ears: hearing grossly normal bilaterally Face and sinus: normal facial exam Eyes General: Yes appearance normal, both eyes and all related structures Neck Neck: normal visual inspection, trachea midline and No tender Resp Effort & Inspection: normal respiratory effort Auscultation: clear to auscultation bilaterally Other: Tenderness of the right lower chest wall which is mild. Cardio Rate: regular rate Rhythm: regular rhythm Heart Sounds: S1 normal and S2 normal GI Inspection: normal to inspection Palpation: soft, No firm and No guarding Other: Tenderness of the right upper quadrant to deep palpation without any rebound. Course Course Course Narrative: Patient seen and examined by myself upon arrival in the ER. She had some hyperbilirubinemia and right upper quadrant tenderness so CT was ordered which was equivocal and this right upper quadrant ultrasound was also ordered which showed no evidence of acute cholecystitis or biliary obstruction on either imaging study. After these results are back I had another discussion with the patient and she informed me she has a longstanding issue with hyperbilirubinemia and she has had a HIDA scan a few years ago but states she was never referred to GI and was never given a clear explanation as to why she has hyperbilirubinemia. I suggested that she see a patient information coordinator as soon as possible and I wrote her a referral for this. Otherwise, I advised her to follow up with her PCP as soon as possible as well. I advised her to return to the ER for any changing worsening or [id number] pain or any pain accompanied by fever, chills, sweats, shortness of breath, lightheadedness, nausea vomiting. The patient was in agreement with this plan. Orders Ordered: ED Orders 10/09/24 09:40 Complete Blood Count AUTO DIFF Stat Comprehensive Metabolic Panel Stat Lactate (Lactic Acid) Stat Lipase Stat Urine Microscopic Stat 10/09/24 09:46 CT abdomen pelvis wo/w con Stat 10/09/24 11:38 US abdomen limited Stat Vital Signs Vital signs: Vital Signs - 8 hr 10/09/24 09:22 10/09/24 12:25 Temperature 97.9 F Pulse Rate 91 H 70 Respiratory Rate 16 16 Blood Pressure 119/81 114/66 Pulse Oximetry 99 100 Oxygen Delivery Method Room Air Room Air MDM - Abdominal Pain Differential Diagnosis Differential diagnosis: Likely abdominal pain, calculus of kidney, gastroenteritis, pancreatitis and other (cholecystitis. choledocholithiasis) Lab Data 10/09/24 09:40 10/09/24 09:40 Labs: Lab Results 10/09/24 Range/Units 09:40 WBC 5.6 (4.5-11.0) X10^3/uL RBC 4.35 (4.0-5.2) X10^6/uL Hgb 13.6 (12.0-16.0) g/dL Hct 38.5 (36-46) % MCV 88.6 (80-100) fL MCH 31.3 (26-34) PG MCHC 35.3 (30-36) % RDW 12.8 (11.6-14.8) % Plt Count 235 (150-400) X10^3/uL Neut % (Auto) 62.3 (50-75) % Lymph % (Auto) 27.6 (25-40) % [place] % (Auto) 7.9 (3-14) % Eos % (Auto) 1.9 L (2-4) % Baso % (Auto) 0.3 (0-2) % Neut # (Auto) 3500 (6467-0146) /uL Lymph # (Auto) 1500 (0153-7305) /uL [place] # (Auto) 400 (0-900) /uL Eos # (Auto) 100 (0-450) /uL Baso # (Auto) 0 (0-100) /uL Sodium 140 (137-145) mmol/L Potassium 3.8 (3.4-5.1) mmol/L Chloride 108 H (98-107) mmol/L Carbon Dioxide 21 L (22-32) mmol/L BUN 11 (7-17) mg/dL Creatinine 0.62 (0.52-1.04) mg/dL Estimated GFR > 60 (>60) mL/min BUN/Creatinine Ratio 17.7 (6-22) Glucose 89 (70-99) mg/dL Lactate 1.0 (0.7-2.1) mmol/L Calcium 9.6 (8.4-10.2) mg/dL Total Bilirubin 2.8 H (0.2-1.3) mg/dL AST 22 (14-36) IU/L ALT 13 (<35) IU/L Alkaline Phosphatase 68 (38-126) U/L Total Protein 7.9 (6.3-8.2) g/dL Albumin 4.9 (3.5-5.0) g/dL Globulin 3.0 (1.7-4.1) g/dL Albumin/Globulin Ratio 1.6 (1.0-2.8) Lipase 120 (23-300) U/L Urine RBC 0-1/hpf (0-5/HPF) Urine WBC None seen (0-5/HPF) Ur Squamous Epith Cells 1-5 /hpf (0-5/HPF) Urine Bacteria None seen (None) Ur Culture Indicated? Cult not indicated Vol Urine Centrifuged 10ml (spun) Point of care testing: Point of Care Testing Test Results Negative Urine Dip Bedside Urine Glucose Negative Bedside Urine Bilirubin - Negative Bedside Urine Ketone +/- 5 Urine Specific [place] 1.005 Bedside Urine Occult Blood +++ Bedside Urine pH 6.0 Bedside Urine Protein - Negative Bedside Urine Urobilinogen - Negative Bedside Urine Nitrite - Negative Bedside Urine Leukocytes - Negative Esterase Discharge Plan Departure Patient Disposition: Home Clinical Impression: Hyperbilirubinemia, Acute costochondritis Instructions: DI for Abdominal Pain-Adult Activity Restrictions/Additional Instructions: If there is any change or worsening in her condition especially worsening or [id number] pain or pain accompanied by fevers, shortness of breath, lightheadedness, dizziness, nausea vomiting diarrhea or vomiting or passing blood by the rectum then please return to the ER right away for further evaluation. Otherwise, please follow-up with your PCP as soon as possible., and please follow up with Gastroenterology as soon as possible I have written you a referral for this. In the meantime, please avoid Tylenol and use ibuprofen as needed for pain. Prescriptions: No Action ketorolac 10 mg tablet 10 mg PO Q8H PRN (Reason: pain) Qty: 14 0RF Rx Instructions: maximum total duration of 5 days from all oral, intranasal, or parenteral formulations oxycodone 5 mg tablet 5 mg PO Q6H PRN (Reason: pain) Qty: 10 0RF ondansetron 4 mg tablet,disintegrating 4 mg PO Q8H PRN (Reason: nausea and vomiting) Qty: 14 0RF tamsulosin [Flomax] 0.4 mg capsule 0.4 mg PO DAILY Qty: 20 0RF tamsulosin [Flomax] 0.4 mg capsule 0.4 mg PO DAILY Qty: 20 0RF oxycodone 5 mg tablet 5 mg PO Q6H PRN (Reason: pain) Qty: 10 0RF ketorolac 10 mg tablet 10 mg PO Q8H PRN (Reason: pain) Qty: 14 0RF Rx Instructions: maximum total duration of 5 days from all oral, intranasal, or parenteral formulations ondansetron 4 mg tablet,disintegrating 4 mg PO Q8H PRN (Reason: nausea and vomiting) Qty: 14 0RF oxycodone 5 mg tablet 5 mg PO Q6H PRN (Reason: pain) Qty: 10 0RF loratadine 10 mg tablet 10 mg PO DAILY omeprazole 20 mg capsule,delayed release(DR/EC) 20 mg PO DAILY oxycodone-acetaminophen 7.5-325 mg tablet 1 tab PO Q6H PRN (Reason: pain) Qty: 14 0RF oxycodone-acetaminophen 7.5-325 mg tablet 1 tab PO Q6H PRN (Reason: pain) Qty: 14 0RF Referrals: Jeferson Bruno MD [Non-Staff, Internal Medicine] Referral Note: Chronic Hyperbilirubinemia. Unremarkable CT and US. Provider,Myles JEAN [Primary Care Provider, Family Practice] Stand Alone Forms: Patient Portal/API
[2024-10-09 14:32] VITALS: BP 119/62; PULSE 72; RESP 16; O2SAT 98
== END 2024-10-09 14:32 | disposition home or self-care (01) ==
PROVIDERS: Emergency Provider Emergency Medicine
DX: E80.6 Other disorders of bilirubin metabolism (principal); M94.0 Chondrocostal junction syndrome [Tietze]; Z87.442 Personal history of urinary calculi
CPT/HCPCS: 36415; 74178; 76705; 80053; 81003; 81015; 81025; 83605; 83690; 85025; 99283; 99284; Q9967